=== PATIENT | female | born 1985 | race Two or more races ===

== ENCOUNTER 2016-03-13 19:48 | Emergency (ER) | payer SELFPAY ==
[2016-03-13 21:03] VITALS: BP 105/68
[2016-03-13] MEDS ORDERED: ONDANSETRON 4 MG TAB.RAPDIS PO ONE (21:11)
[2016-03-13] MEDS ORDERED: ACETAMINOPHEN 325 MG TABLET PO ONE (21:11)
--- NOTE | 2016-03-13 21:14 | ER Document Report ---
ED Medical Screen (RME) - General Chief Complaint: Abdominal Pain Stated Complaint: STOMACH PAIN Notes: 30-year-old, G5 before at 15 weeks gestation by last menstrual period, complaining of upper to left mid abdominal pain since this morning, reporting vomiting x1, reports she felt like she had to strain to have a bowel movement. No blood in vomit or bowel movement, patient states she felt feverish earlier today. TRAVEL OUTSIDE OF THE [place] IN LAST 30 DAYS: No - Related Data Allergies/Adverse Reactions: No Known Allergies Allergy (Verified 03/13/16 21:07) Home Medications: Current Home Medications Vit/Iron Fumarate/FA [ Tablet] 1 each PO DAILY 03/13/16 [ History] Past Medical History - Social History Chew tobacco use (# tins/day): No Frequency of alcohol use: None Drug Abuse: None Renal/ Medical History: Denies: Hx Peritoneal Dialysis Past Surgical History: Reports: Hx Section, Hx Hysterectomy - Immunizations Immunizations up to date: No Hx Diphtheria, Pertussis, Tetanus Vaccination: No Physical Exam - Vital signs Vitals: Temp Pulse Resp BP Pulse Ox 98.2 F 84 18 105/68 99 03/13/16 21:02 03/13/16 21:02 03/13/16 21:02 03/13/16 21:02 03/13/16 21:02 - Abdominal Inspection: Gravid female Tenderness: Tender - Very mild generalized tenderness, nonspecific, exam limited due to patient sitting in chair Course - Vital Signs Vital signs: Temp Pulse Resp BP Pulse Ox 98.2 F 84 18 105/68 99 03/13/16 21:02 03/13/16 21:02 03/13/16 21:02 03/13/16 21:02 03/13/16 21:02
[2016-03-13] MEDS ORDERED: ACETAMINOPHEN 325 MG TABLET ONE (21:23)
[2016-03-13 21:58] LABS: ABSOLUTE BASOPHILS # (AUTO) 0.1 10^3/uL (0.0-0.2); ABSOLUTE LYMPHOCYTES (AUTO) 1.4 10^3/uL (0.5-4.7); ABSOLUTE MONOCYTES (AUTO) 0.3 10^3/uL (0.1-1.4); ABSOLUTE NEUT (AUTO) 10.1 10^3/uL (1.7-8.2); BASOPHILS % (AUTO) 0.4 % (0-2); EOSINOPHILS % (AUTO) 0.1 % (0-6); HEMATOCRIT 39.8 % (36.0-47.0); HGB HCT DIFFERENCE -0.8; LYMPHOCYTES % (AUTO) 11.4 % (13-45); MEAN CORPUSCULAR HEMOGLOBIN 30.8 pg (27.0-33.4); MEAN CORPUSCULAR HGB CONC 32.7 g/dL (32.0-36.0); MEAN CORPUSCULAR VOLUME 94 fl (80-97); MONOCYTES % (AUTO) 2.9 % (3-13); RED BLOOD COUNT 4.24 10^6/uL (3.72-5.28); RED CELL DISTRIBUTION WIDTH 12.9 % (11.5-14.0); SEGMENTED NEUTROPHILS % (AUTO) 85.2 % (42-78); WHITE BLOOD COUNT 11.9 10^3/uL (4.0-10.5)
[2016-03-13 22:06] LABS: APPEARANCE,URINE SLIGHTLY-CLOUDY; BILIRUBIN,URINE NEGATIVE (NEGATIVE); GLUCOSE, URINE 50 mg/dL (NEGATIVE); KETONES,URINE 20 mg/dL (NEGATIVE); LEUKOCYTE ESTERASE,URINE NEGATIVE (NEGATIVE); NITRITE,URINE NEGATIVE (NEGATIVE); PROTEIN,URINE >=500 mg/dL (NEGATIVE); URINE SPECIFIC GRAVITY 1.029; UROBILINOGEN,URINE NEGATIVE mg/dL (<2.0)
[2016-03-13 22:08] LABS: ALANINE AMINOTRANSFERASE 31 U/L (9-52); ALBUMIN 3.9 g/dL (3.5-5.0); ALKALINE PHOSPHATASE 77 U/L (38-126); ANION GAP 11 (5-19); ASPARTATE AMINO TRANSFERASE 20 U/L (14-36); BILIRUBIN,TOTAL 0.5 mg/dL (0.2-1.3); BLOOD UREA NITROGEN 10 mg/dL (7-20); CALCIUM 9.2 mg/dL (8.4-10.2); CARBON DIOXIDE 22 mmol/L (22-30); CHLORIDE 105 mmol/L (98-107); CREATININE RESULT 0.57 mg/dL (0.52-1.25); GLUCOSE 151 mg/dL (75-110); POTASSIUM 3.8 mmol/L (3.6-5.0); SODIUM 137.9 mmol/L (137-145); TOTAL PROTEIN 7.4 g/dL (6.3-8.2)
== END 2016-03-14 02:22 | disposition left against medical advice (07) ==
LOC: ER 19:48
DX: Z53.9 Procedure and treatment not carried out, unspecified reason (principal); R10.9 Unspecified abdominal pain; Z79.899 Other long term (current) drug therapy
CPT/HCPCS: 99281; 36415; 85025; 80053; 81001; S0119

== ENCOUNTER 2016-03-18 23:57 | Inpatient (IN) | payer SELFPAY ==
--- NOTE | 2016-03-19 00:35 | ER Document Report ---
ED Medical Screen (RME) - General Chief Complaint: Vaginal Bleeding Stated Complaint: VAGINAL BLEEDING Time seen by provider: 00:29 Mode of Arrival: Ambulatory Information source: Patient Notes: 30-year-old female presents to ED for vaginal bleeding and pelvic pain and . On March 13 she was stated as 15 weeks . She states she had an ultrasound last month and was told she had a boy does not remember what day she was due. Patient states she's been having vaginal bleeding for 24 hours. She states yesterday the bleeding was heavy today this like a regular period. She states she takes 2-3 hours for her to soak one pad today 5 para 4 the youngest one is about a year. I have greeted and performed a rapid initial assessment of this patient. A comprehensive ED assessment and evaluation of the patient, analysis of test results and completion of medical decision making process will be conducted by an additional ED providers. TRAVEL OUTSIDE OF THE [place] IN LAST 30 DAYS: No - Related Data Allergies/Adverse Reactions: No Known Allergies Allergy (Verified 03/13/16 21:07) Past Medical History Renal/ Medical History: Denies: Hx Peritoneal Dialysis Past Surgical History: Reports: Hx Section, Hx Hysterectomy - Immunizations Immunizations up to date: No Hx Diphtheria, Pertussis, Tetanus Vaccination: No Physical Exam - Vital signs Vitals: Temp Pulse Resp BP Pulse Ox 99.1 F 139 H 18 91/57 L 97 03/19/16 00:16 03/19/16 00:16 03/19/16 00:16 03/19/16 00:16 03/19/16 00:16 Course - Vital Signs Vital signs: Temp Pulse Resp BP Pulse Ox 99.1 F 139 H 18 91/57 L 97 03/19/16 00:16 03/19/16 00:16 03/19/16 00:16 03/19/16 00:16 03/19/16 00:16
[2016-03-19] MEDS ORDERED: NORMAL SALINE 1000 ML 1,000 ML IV ONE (00:36)
[2016-03-19] MEDS ORDERED: NORMAL SALINE 250 ML IV PRN (00:43)
[2016-03-19] MEDS ORDERED: ONDANSETRON HCL INJ/PF 4 MG/2 ML SDV IV ONE (00:48)
[2016-03-19] MEDS ORDERED: MORPHINE SULFATE 10 MG/ML INJ IV ONE (00:48)
--- NOTE | 2016-03-19 00:51 | ER Document Report ---
ED General - General Mode of Arrival: Ambulatory Information source: Patient TRAVEL OUTSIDE OF THE [place] IN LAST 30 DAYS: No - HPI Patient complains to provider of: Vaginal Bleeding Onset: Yesterday Onset/Duration: Sudden, Better <ISRAEL SCHUSTER - Last Filed: 03/19/16 05:06> <TESHANANO ANN - Last Filed: 03/19/16 06:25> - General Chief Complaint: Vaginal Bleeding Stated Complaint: VAGINAL BLEEDING Notes: Patient is a 16 week , 30 y/o female presenting to the emergency department concerned of vaginal bleeding onset yesterday. Patient states that she went through 5 pads yesterday, and 3 today. Patient states that it seems like the bleeding is slowing down today. Patient also complains of lower/ suprapubic abdominal pain. (ISRAEL SCHUSTER) - HPI Context: 16 weeks (ISRAEL SCHUSTER) - Related Data Allergies/Adverse Reactions: No Known Allergies Allergy (Verified 03/13/16 21:07) Past Medical History - General Information source: Patient, [facility] Records - Social History Smoking Status: Current Every Day Smoker Frequency of alcohol use: None Drug Abuse: None Family History: None Patient has suicidal ideation: No Renal/ Medical History: Denies: Hx Peritoneal Dialysis Past Surgical History: Reports: Hx Section, Hx Hysterectomy - Immunizations Immunizations up to date: No Hx Diphtheria, Pertussis, Tetanus Vaccination: No <ISRAEL SCHUSTER - Last Filed: 03/19/16 05:06> Review of Systems - Review of Systems Constitutional: No symptoms reported EENT: No symptoms reported Cardiovascular: See HPI, Lightheaded Respiratory: No symptoms reported Gastrointestinal: See HPI, Abdominal pain Genitourinary: No symptoms reported Female Genitourinary: See HPI, , Vaginal bleeding Musculoskeletal: No symptoms reported Skin: No symptoms reported Hematologic/Lymphatic: No symptoms reported Neurological/Psychological: No symptoms reported -: Yes All other systems reviewed and negative <ISRAEL SCHUSTER - Last Filed: 03/19/16 05:06> Physical Exam - Vital signs Interpretation: Hypotensive, Tachycardic - General General appearance: Alert - HEENT Head: Normocephalic, Atraumatic Eyes: Normal Pupils: PERRL - Respiratory Respiratory status: No respiratory distress Chest status: Nontender Breath sounds: Normal Chest palpation: Normal - Cardiovascular Rhythm: Regular Heart sounds: Normal auscultation Murmur: No - Abdominal Inspection: Gravid female Tenderness: Tender - Diffuse suprapubic tenderness to palpation - Genitourinary Speculum exam: Cervix open Vaginal bleeding: None - Back Back: Normal, Nontender - Extremities General upper extremity: Normal inspection, Nontender, Normal color, Normal ROM , Normal temperature General lower extremity: Normal inspection, Nontender, Normal color, Normal ROM , Normal temperature - Neurological Neuro grossly intact: Yes Cognition: Normal Calmar Coma Scale Eye Opening: Spontaneous Calmar Coma Scale Verbal: Oriented Kindra Coma Scale Motor: Obeys Commands Calmar Coma Scale Total: 15 Speech: Normal - Psychological Associated symptoms: Normal affect, Normal mood - Skin Skin Temperature: Warm Skin Moisture: Dry Skin Color: Normal <ISRAEL SCHUSTER - Last Filed: 03/19/16 05:06> Course - Laboratory Result Diagrams: 03/19/16 01:00 03/19/16 01:00 - Consults Yoana Time consulted: 01:33 Dilcia Time consulted: 03:02 <ISRAEL SCHUSTER - Last Filed: 03/19/16 05:06> - Laboratory Result Diagrams: 03/19/16 05:01 03/19/16 01:00 - Diagnostic Test Radiology reviewed: Image reviewed, Reports reviewed <NANO PARKINSON - Last Filed: 03/19/16 06:25> - Re-evaluation Re-evalutation: 03/19/16 Patient is a 30-year-old female who comes in complaining of abdominal pain and vaginal bleeding. Patient has no vaginal bleeding currently. Her hemoglobin has gone from 13-9 since March 13. Patient presents with tachycardia and hypotension. Patient was given fluid bolus and OB was immediately consult at. Instructed to give IV doxycycline and get ultrasound. Ultrasound showing a complex structure in the right adnexa. Discussed with STAFF DEVELOPER. Does not think that it is a ruptured ectopic. Discussed with blood bank. Patient has antibodies and they're still working to type and screen her. It is going to be few hours for blood. Patient's tachycardia has resolved which she has been consistently hypotensive. Patient states that she is usually hypotensive. Patient will be continued with fluid boluses at this time. She is also been given Ancef as per STAFF DEVELOPER. Patient will be admitted to the ICU. She will likely will be going to the OR at some point today. (NANO PARKINSON) - Vital Signs Vital signs: Temp Pulse Resp BP Pulse Ox 99.1 F 139 H 24 H 80/60 L 97 03/19/16 00:16 03/19/16 00:16 03/19/16 04:30 03/19/16 04:30 03/19/16 04:30 (ISRAEL SCHUSTER) (NANO PARKINSON) - Laboratory Laboratory results interpreted by me: 03/19/16 03/19/16 03/19/16 01:00 01:00 01:00 WBC 27.6 H RBC 3.17 L Hgb 9.7 L Hct 29.4 L Seg Neuts % (Manual) 89 H Lymphocytes % (Manual) 2 L Abs Neuts (Manual) 25.7 H Potassium 3.0 L* Carbon Dioxide 19 L Alkaline Phosphatase 146 H Beta HCG, Quant 63494.00 H Crossmatch See Detail (NANO PARKINSON) - Consults Yoana Reason for consultation: 03/19/16 01:[address] Lees about patient's case, and she states to get an ultrasound and give the patient Doxycycline. 03/19/16 02:58 Discussed unofficial ultrasound reading with Dr. Lees. She will look at the ultrasound and call back. 03/19/16310 Dr. Lees called back to discuss ultrasound. She will call radiologist to discuss formal reading. 03/19/167 Dr. Lees spoke with radiologist who believes that the patient has a corpus luteum cyst. Dr. Lees will come to ED to see patient. 03/19/[address] Lees came to see patient and recommends to admit to 2nd floor for observation. Dr. Lees does not feel comfortable taking patient to the OR until there is access to blood for the patient. 03/19/[address] Lees after receiving call from second floor refusing patient due to her hypotensive state. (ISRAEL SCHUSTER) Dilcia Reason for consultation: 03/19/16 03:[address] Ha to make aware of patient's case. Dr. Ha agrees that it seems more like an OB case and will take a back seat unless further assistance is needed from him. (ISRAEL SCHUSTER) Critical Care Note - Critical Care Note Total time excluding time spent on procedures (mins): 120 - evaluation and management of hypotension, leukocytosis, anemia, abdominal pain, coordination with specialist he services, coordination of admission to the ICU, counseling of patient <NANO PARKINSON - Last Filed: 03/19/16 06:25> Discharge <ISRAEL SCHUSTER - Last Filed: 03/19/16 05:06> - Discharge Admitting Provider: [facility] Admitted: ICU - [place] <NANO PARKINSON - Last Filed: 03/19/16 06:25> - Discharge Clinical Impression: SIRS (systemic inflammatory response syndrome), Symptomatic anemia Fever Qualifiers: Fever type: unspecified Qualified Code(s): R50.9 - Fever, unspecified Qualifiers: Weeks of gestation: unspecified Qualified Code(s): Z33.1 - state, incidental Condition: Fair Disposition: ADMITTED INPATIENT Scribe Attestation: 03/19/16 06:25 I personally performed the services described in the documentation, reviewed and edited the documentation which was dictated to the scribe in my presence, and it accurately records my words and actions. (NANO PARKINSON) Scribe Documentation - Scribe Written by Maranda:: Israel Schuster 03/19/2016 0050 acting as scribe for :: Tesha <ISRAEL SCHUSTER - Last Filed: 03/19/16 05:06>
[2016-03-19 01:28] LABS: HEMATOCRIT 29.4 % (36.0-47.0); HEMOGLOBIN 9.7 g/dL (12.0-15.5); HGB HCT DIFFERENCE -0.3; MEAN CORPUSCULAR HEMOGLOBIN 30.7 pg (27.0-33.4); MEAN CORPUSCULAR HGB CONC 33.1 g/dL (32.0-36.0); MEAN CORPUSCULAR VOLUME 93 fl (80-97); RED BLOOD COUNT 3.17 10^6/uL (3.72-5.28); RED CELL DISTRIBUTION WIDTH 12.6 % (11.5-14.0); WHITE BLOOD COUNT 27.6 10^3/uL (4.0-10.5)
[2016-03-19] MEDS ORDERED: DOXYCYCLINE HYCLATE INJ 100 MG VIAL IV ONE (01:32)
[2016-03-19] MEDS ORDERED: ACETAMINOPHEN 325 MG TABLET PO ONE (01:36)
[2016-03-19 01:40] LABS: ALANINE AMINOTRANSFERASE 16 U/L (9-52); ALBUMIN 3.6 g/dL (3.5-5.0); ALKALINE PHOSPHATASE 146 U/L (38-126); ANION GAP 13 (5-19); ASPARTATE AMINO TRANSFERASE 24 U/L (14-36); BILIRUBIN,TOTAL 0.9 mg/dL (0.2-1.3); BLOOD UREA NITROGEN 15 mg/dL (7-20); CALCIUM 8.8 mg/dL (8.4-10.2); CARBON DIOXIDE 19 mmol/L (22-30); CHLORIDE 105 mmol/L (98-107); CREATININE RESULT 0.87 mg/dL (0.52-1.25); GLUCOSE 109 mg/dL (75-110); SODIUM 137.2 mmol/L (137-145); TOTAL PROTEIN 7.3 g/dL (6.3-8.2)
[2016-03-19 02:00] LABS: BAND NEUTROPHILS % (MANUAL) 4 % (3-5); BASOPHILS % (MANUAL) 0 % (0-2); EOSINOPHILS % (MANUAL) 0 % (0-6); LYMPHOCYTES % (MANUAL) 2 % (13-45); TOTAL CELLS COUNTED 100
[2016-03-19 02:02] LABS: OVALOCYTES SLIGHT; POIKILOCYTOSIS SLIGHT; TOXIC GRANULATION SLIGHT
[2016-03-19] MEDS ORDERED: RINGERS SOLUTION,LACTATED 1,000 ML IV ONE ×3 (02:27→05:05)
[2016-03-19] MEDS ORDERED: POTASSI CL 20 MEQ/50 ML RIDER 50 ML IV SCH (03:00)
[2016-03-19] MEDS ORDERED: ONDANSETRON HCL INJ/PF 4 MG/2 ML SDV IV PRN (05:26)
[2016-03-19] MEDS ORDERED: CEFAZOLIN 2 GM/D5W RTU 50 ML IV ONE (05:34)
[2016-03-19 05:53] LABS: HEMATOCRIT 24.2 % (36.0-47.0); HEMOGLOBIN 8.2 g/dL (12.0-15.5); HGB HCT DIFFERENCE 0.4; MEAN CORPUSCULAR HEMOGLOBIN 31.1 pg (27.0-33.4); MEAN CORPUSCULAR HGB CONC 33.8 g/dL (32.0-36.0); MEAN CORPUSCULAR VOLUME 92 fl (80-97); RED BLOOD COUNT 2.63 10^6/uL (3.72-5.28); RED CELL DISTRIBUTION WIDTH 12.8 % (11.5-14.0); WHITE BLOOD COUNT 23.9 10^3/uL (4.0-10.5)
[2016-03-19 06:00] LABS: BAND NEUTROPHILS % (MANUAL) 7 % (3-5); BASOPHILS % (MANUAL) 0 % (0-2); EOSINOPHILS % (MANUAL) 0 % (0-6); LYMPHOCYTES % (MANUAL) 8 % (13-45); OVALOCYTES SLIGHT; POIKILOCYTOSIS SLIGHT; POLYCHROMASIA SLIGHT; TOTAL CELLS COUNTED 100; TOXIC GRANULATION SLIGHT
[2016-03-19 06:34] LABS: APPEARANCE,URINE CLEAR; BILIRUBIN,URINE NEGATIVE (NEGATIVE); GLUCOSE, URINE NEGATIVE (NEGATIVE); KETONES,URINE NEGATIVE (NEGATIVE); LEUKOCYTE ESTERASE,URINE TRACE (NEGATIVE); NITRITE,URINE NEGATIVE (NEGATIVE); PROTEIN,URINE NEGATIVE (NEGATIVE); URINE SPECIFIC GRAVITY 1.008
[2016-03-19] MEDS ORDERED: GENTAMICIN SULFATE INJ 80 MG/2 ML VIAL IM ONE (06:42)
--- NOTE | 2016-03-19 06:42 | PDOC H&P ---
History of Present Illness Admission Date/PCP: 03/19/16 03:55 Patient complains of: vaginal bleeding like the last day of menses History of Present Illness: KARELY HOWARD is a 30 year old female with h/o prior x 3 and then Urgent C/S in 2015 for NRFHTS. She thought she had a BTL at her C/S in 2014. However, review of operative report noted NO tubal ligation. She presents for evaluation in the ER due to vaginal bleeding and known . She reports that she was seen at a clinic and then referred for an US at the end of January or beginning of Feb and was told she was 14-15wks at that time. 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 She denies SOB but reports that she felt dizzy and lightheaded when she came in to the ER. She is not sure of last menses but it may have been at then end of November. Past Medical History LMP: unknown Gynecological Infection: No 1 Baby 1 Delivery: Spontaneous Vaginal Delivery 2 Baby 2 Delivery: Spontaneous Vaginal Delivery 3 Baby 3 Delivery: Spontaneous Vaginal Delivery 4 Male Delivery: : Low Cervical, Transverse Past Surgical History Past Surgical History: Reports: Section - Pt did not have BTL during section. Social History Information Source: Patient, [facility] Records Lives with: Family Smoking Status: Current Every Day Smoker Frequency of Alcohol Use: None Hx Recreational Drug Use: No Drugs: None Hx Prescription Drug Abuse: No - Advance Directive Resuscitation Status: Full Code Family History Family History: None, Reviewed & Not Pertinent Parental Family History Reviewed: No Children Family History Reviewed: NA Sibling(s) Family History Reviewed.: NA Medication/Allergy Home Medications: Vit/Iron Fumarate/FA [ Tablet] 1 each PO DAILY 03/13/16 Allergies/Adverse Reactions: No Known Allergies Allergy (Verified 03/13/16 21:07) Review of Systems Constitutional: ABSENT: chills, fever(s), headache(s), weight gain, weight loss Eyes: ABSENT: visual disturbances Respiratory: ABSENT: cough, hemoptysis Gastrointestinal: ABSENT: abdominal pain, constipation, diarrhea, hematemesis, hematochezia, nausea, vomiting Genitourinary: PRESENT: other - vaginal bleeding.. ABSENT: dysuria Musculoskeletal: ABSENT: joint swelling Integumentary: ABSENT: rash, wounds Neurological: ABSENT: abnormal gait, abnormal speech, confusion, dizziness, focal weakness, syncope Psychiatric: ABSENT: anxiety, depression, homidical ideation, suicidal ideation Physical Exam - Physical Exam Vital Signs: Temp Pulse Resp BP Pulse Ox 99.1 F 139 H 24 H 80/60 L 97 03/19/16 00:16 03/19/16 00:16 03/19/16 04:30 03/19/16 04:30 03/19/16 04:30 General appearance: PRESENT: no acute distress, cooperative, well-developed, well-nourished Head exam: PRESENT: atraumatic, normocephalic Respiratory exam: PRESENT: clear to auscultation qi, symmetrical Cardiovascular exam: PRESENT: RRR. ABSENT: diastolic murmur, rubs, systolic murmur GI/Abdominal exam: PRESENT: normal bowel sounds, rebound, soft, tenderness - left side of abdomen diffuse. ABSENT: distended, firm, guarding Rectal exam: PRESENT: deferred Extremities exam: PRESENT: full ROM. ABSENT: calf tenderness, clubbing, pedal edema Musculoskeletal exam: PRESENT: ambulatory, full ROM Neurological exam: PRESENT: alert, awake, oriented to person, oriented to place , oriented to time, oriented to situation, CN II-XII grossly intact. ABSENT: motor sensory deficit Psychiatric exam: PRESENT: appropriate affect, normal mood. ABSENT: homicidal ideation, suicidal ideation Skin exam: PRESENT: dry, intact, warm. ABSENT: cyanosis, rash - Gynecological Exam Labia: normal Urethra: normal Introitus: normal Perineum: normal Cervix: other - approx 1cm dilated Uterus: tender, other - displaced to left maternal abdomen Adhexa: other - large right adnexal mass not palpable Rectal: not examined Rectovaginal: not examined Result Laboratory Results: 03/19/16 04:03 Lactic Acid 1.0 Impressions: Obstetrics Ultrasound 03/19/16 01:13 IMPRESSION: NO VISUALIZED INTRA- OR EXTRAUTERINE . COMPLEX MATERIAL DISTENDING THE ENDOMETRIAL CAVITY COULD REPRESENT FAILED INTRAUTERINE OR POTENTIALLY MOLAR . RECOMMEND CORRELATION WITH BETA HCG LEVEL. ADDITIONAL NOTE MADE OF A 19.8 CM RIGHT ADNEXAL CYST WHICH MAY BE AN OVARIAN OR PAROVARIAN CYST. THERE IS NO EVIDENCE OF RIGHT OVARIAN TORSION HOWEVER RECOMMEND GYNECOLOGIC CONSULTATION GIVEN THE SIZE OF THIS LESION. Assessment & Plan - Diagnosis (1) Ovarian mass, right Is this a current diagnosis for this admission?: YesPlan: large Right adnexal mass loculated and fluid filled per US read and my evaluation of pictures as well. Possible Theca Lutein cyst in the setting of possible molar or partial molar . If theca lutein cyst then this would resolve with evacuation of the uterus. (2) Missed Is this a current diagnosis for this admission?: YesPlan: MAB with bleeding for approx 2 days and noted Hb/Hct drop. Now 8.3/24 decreased from several days ago and also decreased from admission at approx 0100. Will get Urine cx and GC/CT for evaluation. Transfuse 2 units of PRBC prior to OR. Due to uterine ttp and elevated WBC count - Gent/Clinda started for possible septic . Pt informed that she did not have BTL with prior c/s. Only temp documented in ER is 99.1 which is not technically a fever. Temp has not been re-evaluated at this time. She is added on for D&C for 03/19/2016 (3) Anemia Qualifiers: Anemia type: iron deficiency Iron deficiency anemia type: other iron deficiency Qualified Code(s): D50.8 - Other iron deficiency anemias Is this a current diagnosis for this admission?: YesPlan: Anemia of blood loss with bleeding for 2 days but now no active bleeding on exam. However, due to continued decrease of Hb/Hct (likely most recent is due to hemodilution) and due to persistent hypotension despite fluid recussitation. Needs Transfusion and continuing to wait for PRBCs due to reported antibodies. Needs to have transfusion on board prior to surgical evaluation. - Time Time Spent: 30 to 50 Minutes Critical Time spent with patient: Less than 15 minutes Medications reviewed and adjusted accordingly: Yes Anticipated discharge: Home Within: within 48 hours - Inpatient Certification Medical Necessity: Need Close Monitoring Due to Risk of Patient Decompensation, Need For IV Fluids, Need for IV Antibiotics, Need for Surgery Post Hospital Care: D/C Cheese Sprayer Documentation
[2016-03-19 08:23] LABS: CHLAM PCR NOT DETECTED (NOT DETECT)
[2016-03-19] MEDS: CLINDAMYCIN 900 MG/D5W RTU 50 ML IV SCH ×3 (08:45→21:50)
[2016-03-19] MEDS ORDERED: DIPHENHYDRAMINE HCL 50 MG/ML VIAL IV ONE (09:30)
[2016-03-19] MEDS ORDERED: GENTAMICIN SULFATE 150 MG in DEXTROSE 5%-WATER 100 ML IV ONE (10:00)
[2016-03-19] MEDS ORDERED: ACETAMINOPHEN 100 ML IV ONE (10:00)
[2016-03-19] MEDS ORDERED: GENTAMICIN SULFATE 120 MG in DEXTROSE 5%-WATER 100 ML IV ONE (10:00)
[2016-03-19] MEDS ORDERED: MIDAZOLAM 2 MG/2 ML INJ ONE (12:41)
[2016-03-19] MEDS ORDERED: FENTANYL CITRATE INJ/PF 250 MCG/5 ML AMPULE ONE (12:41)
[2016-03-19] MEDS ORDERED: PROPOFOL INJ 200 MG/20 ML VIAL IV ONE (12:41)
[2016-03-19] MEDS ORDERED: MORPHINE SULFATE 10 MG/ML INJ ONE (12:42)
[2016-03-19] MEDS ORDERED: METHYLERGONOVINE MALEATE INJ/PF 0.2 MG/1 ML AMPULE ONE (12:46)
[2016-03-19] MEDS ORDERED: MISOPROSTOL 0.2 MG TABLET ONE (12:46)
[2016-03-19] MEDS ORDERED: LIDOCAINE 1% INJ-PF (10 MG/ML) 30 ML SDV ONE (12:46)
[2016-03-19] MEDS ORDERED: GENTAMICIN SULFATE INJ 80 MG/2 ML VIAL IV SCH (14:00)
--- NOTE | 2016-03-19 14:17 | OPERATIVE REPORT E ---
Operative Report NAME: KARELY HOWARD : 1985 AGE: 30Y DATE OF SURGERY: 03/19/2016 ROOM: ED10 PREOPERATIVE DIAGNOSIS: Incomplete septic . POSTOPERATIVE DIAGNOSIS: Incomplete septic . OPERATION: Ultrasound guided suction D and C. SURGEON: MELLISSA CUELLAR M.D. ANESTHESIA: General endotracheal. ESTIMATED BLOOD LOSS: Two-hundred mL. SPECIMEN TO PATHOLOGY: Products of conception. FINDINGS: There was an enlarged uterus with copious products of conception and a gaping cervical os. At the beginning of the procedure, there was slightly murky blood in the vagina. The uterus appeared clean at the end of the procedure by ultrasound and bleeding was scant at the end of the procedure. The patient does have incidentally noted a 20 cm right ovarian cystic cyst. For this reason, the ultrasound guidance was used, as well as the infected uterine tissue with large amount of products of conception present. DESCRIPTION OF PROCEDURE: After discussing risks, benefits, and alternatives of the procedure and obtaining informed consent, the patient was taken to the operating room where general anesthesia was achieved. She was given 1 unit intraoperatively and had been given 1 unit preoperatively for her anemia. She was positioned in the dorsal lithotomy position, and prepped and draped in the usual standard fashion. The inverter and clipper positioned herself for ultrasound guidance from the abdomen during this time. Bladder was then drained via in and out catheterization. A speculum was placed in the vagina. The anterior aspect of the cervix was grasped with a single tooth tenaculum. A #14 dilator immediately passed. A curved suction curette was introduced into the uterine cavity under ultrasound guidance and suction curettage was performed. This was performed until the cavity seemed clean. A large Banjo curette was used to remove a small amount of remaining placenta and membranes. The curette was passed one final time and the uterus involuted. Cytotec 1000 mcg was placed prophylactically at the end of the procedure to keep the uterus contracted, given the suspected infection and baseline anemia. DICTATING PHYSICIAN: MELLISSA CUELLAR M.D. [id number] PHY#: [id number] ID: [id number] JOB#: [id number] ACCT: [id number] cc:MELLISSA CUELLAR M.D. >
[2016-03-19] MEDS ORDERED: PHENYLEPHRINE HCL INJ/PF 10 MG/1 ML SDV ONE (15:15)
[2016-03-19] MEDS ORDERED: LIDOCAINE 2% INJ-PF (20 MG/ML) 10 ML AMPUL ONE (15:15)
[2016-03-19] MEDS ORDERED: METOCLOPRAMIDE HCL INJ/PF 10 MG/2 ML SDV ONE (15:15)
[2016-03-19] MEDS ORDERED: ONDANSETRON HCL INJ/PF 4 MG/2 ML SDV ONE (15:15)
[2016-03-19] MEDS ORDERED: SUCCINYLCHOLINE CHLORIDE INJ 200 MG/10 ML VIAL ONE (15:15)
[2016-03-19] MEDS ORDERED: GLYCOPYRROLATE INJ 0.4 MG/2 ML VIAL ONE (15:15)
[2016-03-19 15:34] LABS: WHITE BLOOD COUNT 20.2 10^3/uL (4.0-10.5)
[2016-03-19 15:50] LABS: ANION GAP 9 (5-19); BLOOD UREA NITROGEN 11 mg/dL (7-20); CALCIUM 7.7 mg/dL (8.4-10.2); CARBON DIOXIDE 18 mmol/L (22-30); CHLORIDE 112 mmol/L (98-107); CREATININE RESULT 0.73 mg/dL (0.52-1.25); GLUCOSE 100 mg/dL (75-110); SODIUM 138.6 mmol/L (137-145)
[2016-03-19 15:59] LABS: POTASSIUM 4.2 mmol/L (3.6-5.0)
[2016-03-19 16:01] LABS: HEMATOCRIT 31.3 % (36.0-47.0); HEMOGLOBIN 10.6 g/dL (12.0-15.5); HGB HCT DIFFERENCE 0.5; MEAN CORPUSCULAR HEMOGLOBIN 31.7 pg (27.0-33.4); MEAN CORPUSCULAR HGB CONC 33.8 g/dL (32.0-36.0); MEAN CORPUSCULAR VOLUME 94 fl (80-97); RED BLOOD COUNT 3.34 10^6/uL (3.72-5.28); RED CELL DISTRIBUTION WIDTH 13.8 % (11.5-14.0)
[2016-03-19] MEDS ORDERED: RINGERS SOLUTION,LACTATED 1,000 ML IV PRN (17:00)
[2016-03-19] MEDS: IBUPROFEN 800 MG TABLET PO PRN (19:00)
[2016-03-19] MEDS: GENTAMICIN SULFATE 80 MG in DEXTROSE 5%-WATER 100 ML IV SCH (19:35)
[2016-03-20] MEDS: IBUPROFEN 800 MG TABLET PO PRN ×3 (02:16→21:54)
[2016-03-20] MEDS: GENTAMICIN SULFATE 80 MG in DEXTROSE 5%-WATER 100 ML IV SCH ×2 (02:17→09:58)
[2016-03-20] MEDS: CLINDAMYCIN 900 MG/D5W RTU 50 ML IV SCH ×3 (05:05→21:02)
[2016-03-20 06:54] LABS: ABSOLUTE EOSINOPHILS # (AUTO) 0.3 10^3/uL (0.0-0.6); ABSOLUTE LYMPHOCYTES (AUTO) 2.1 10^3/uL (0.5-4.7); ABSOLUTE MONOCYTES (AUTO) 0.8 10^3/uL (0.1-1.4); ABSOLUTE NEUT (AUTO) 13.2 10^3/uL (1.7-8.2); BASOPHILS % (AUTO) 0.2 % (0-2); EOSINOPHILS % (AUTO) 1.6 % (0-6); HEMATOCRIT 26.7 % (36.0-47.0); HEMOGLOBIN 8.9 g/dL (12.0-15.5); LYMPHOCYTES % (AUTO) 12.7 % (13-45); MEAN CORPUSCULAR HEMOGLOBIN 31.1 pg (27.0-33.4); MEAN CORPUSCULAR HGB CONC 33.3 g/dL (32.0-36.0); MEAN CORPUSCULAR VOLUME 93 fl (80-97); MONOCYTES % (AUTO) 4.9 % (3-13); RED BLOOD COUNT 2.86 10^6/uL (3.72-5.28); RED CELL DISTRIBUTION WIDTH 13.7 % (11.5-14.0); SEGMENTED NEUTROPHILS % (AUTO) 80.6 % (42-78); WHITE BLOOD COUNT 16.4 10^3/uL (4.0-10.5)
[2016-03-20 07:08] LABS: ANION GAP 7 (5-19); BLOOD UREA NITROGEN 10 mg/dL (7-20); CALCIUM 7.8 mg/dL (8.4-10.2); CARBON DIOXIDE 20 mmol/L (22-30); CHLORIDE 113 mmol/L (98-107); CREATININE RESULT 0.78 mg/dL (0.52-1.25); GLUCOSE 94 mg/dL (75-110); POTASSIUM 3.4 mmol/L (3.6-5.0); SODIUM 139.7 mmol/L (137-145)
--- NOTE | 2016-03-20 10:28 | PDOC PROGRESS REPORT ---
Subjective Subjective:: Pt reports feeling better No n/v, light vaginal bleeding Physical Exam - Physical Exam Vital Signs: Temp Pulse Resp BP Pulse Ox 98.1 F 73 20 92/52 L 99 03/20/16 08:27 03/20/16 08:27 03/20/16 08:27 03/20/16 08:27 03/20/16 08:27 Intake & Output 03/19/16 03/20/16 03/21/16 06:59 06:59 06:59 Intake Total 2750 350 Output Total 750 Balance 2000 350 Weight 71.4 kg 72 kg General appearance: PRESENT: no acute distress, cooperative, obese GI/Abdominal exam: PRESENT: normal bowel sounds, soft, tenderness - mild uterine tenderness - Gynecological Exam Labia: normal Urethra: normal Introitus: normal Perineum: normal Cervix: other - open approx 1cm Cervix: other - approx 1cm dilated Uterus: tender, other - displaced to left maternal abdomen Adhexa: other - large right adnexal mass not palpable Rectal: not examined Rectovaginal: not examined Result Laboratory Results: 03/20/16 06:34 03/20/16 06:34 03/19/16 03/19/16 03/20/16 15:15 15:15 06:34 WBC 20.2 H 16.4 H RBC 3.34 L 2.86 L Hgb 10.6 L D 8.9 L Hct 31.3 L 26.7 L MCV 94 93 MCH 31.7 31.1 MCHC 33.8 33.3 RDW 13.8 13.7 Plt Count 262 274 Seg Neutrophils % 80.6 H Lymphocytes % 12.7 L Monocytes % 4.9 Eosinophils % 1.6 Basophils % 0.2 Absolute Neutrophils 13.2 H Absolute Lymphocytes 2.1 Absolute Monocytes 0.8 Absolute Eosinophils 0.3 Absolute Basophils 0.0 Sodium 138.6 Potassium 4.2 D Chloride 112 H Carbon Dioxide 18 L Anion Gap 9 BUN 11 Creatinine 0.73 Est GFR ( Amer) > 60 Est GFR (Non-Af Amer) > 60 Glucose 100 Calcium 7.7 L 03/20/16 06:34 WBC RBC Hgb Hct MCV MCH MCHC RDW Plt Count Seg Neutrophils % Lymphocytes % Monocytes % Eosinophils % Basophils % Absolute Neutrophils Absolute Lymphocytes Absolute Monocytes Absolute Eosinophils Absolute Basophils Sodium 139.7 Potassium 3.4 L Chloride 113 H Carbon Dioxide 20 L Anion Gap 7 BUN 10 Creatinine 0.78 Est GFR ( Amer) > 60 Est GFR (Non-Af Amer) > 60 Glucose 94 Calcium 7.8 L Impressions: Chest X-Ray 03/19/16 00:00 IMPRESSION: NO ACUTE RADIOGRAPHIC FINDING IN THE CHEST. Intraoperative Ultrasound 03/19/16 00:00 IMPRESSION: Intra procedural transabdominal pelvic ultrasound Obstetrics Ultrasound 03/19/16 01:13 IMPRESSION: NO VISUALIZED INTRA- OR EXTRAUTERINE . COMPLEX MATERIAL DISTENDING THE ENDOMETRIAL CAVITY COULD REPRESENT FAILED INTRAUTERINE OR POTENTIALLY MOLAR . RECOMMEND CORRELATION WITH BETA HCG LEVEL. ADDITIONAL NOTE MADE OF A 19.8 CM RIGHT ADNEXAL CYST WHICH MAY BE AN OVARIAN OR PAROVARIAN CYST. THERE IS NO EVIDENCE OF RIGHT OVARIAN TORSION HOWEVER RECOMMEND GYNECOLOGIC CONSULTATION GIVEN THE SIZE OF THIS LESION. Assessment & Plan - Diagnosis (1) with septicemia Is this a current diagnosis for this admission?: Yes (2) Missed Is this a current diagnosis for this admission?: Yes - Plan Summary Plan Summary: will continue IV abx for another 24 hours, plan d/c home tomorrow
[2016-03-20 10:43] LABS: GENTAMICIN-TROUGH 1.6 ug/mL (<2.0)
[2016-03-20 12:40] LABS: GENTAMICIN-PEAK 4.2 ug/mL (5.0-10.0)
[2016-03-20] MEDS: GENTAMICIN SULFATE 120 MG in DEXTROSE 5%-WATER 100 ML IV SCH (18:43)
[2016-03-20] MEDS ORDERED: OXYCODONE-ACETAMINOPHEN 5-325 MG TABLET ONE (18:57)
[2016-03-20] MEDS ORDERED: OXYCODONE-ACETAMINOPHEN 5-325 MG TABLET PO PRN ×2 (19:02→19:03)
[2016-03-21] MEDS: GENTAMICIN SULFATE 120 MG in DEXTROSE 5%-WATER 100 ML IV SCH (05:09)
[2016-03-21] MEDS: CLINDAMYCIN 900 MG/D5W RTU 50 ML IV SCH (06:22)
[2016-03-21 07:45] LABS: ABSOLUTE BASOPHILS # (AUTO) 0.1 10^3/uL (0.0-0.2); ABSOLUTE EOSINOPHILS # (AUTO) 0.3 10^3/uL (0.0-0.6); ABSOLUTE LYMPHOCYTES (AUTO) 2.3 10^3/uL (0.5-4.7); ABSOLUTE MONOCYTES (AUTO) 0.7 10^3/uL (0.1-1.4); ABSOLUTE NEUT (AUTO) 7.8 10^3/uL (1.7-8.2); BASOPHILS % (AUTO) 0.6 % (0-2); EOSINOPHILS % (AUTO) 2.7 % (0-6); HEMATOCRIT 27.2 % (36.0-47.0); HEMOGLOBIN 9.1 g/dL (12.0-15.5); HGB HCT DIFFERENCE 0.1; LYMPHOCYTES % (AUTO) 20.5 % (13-45); MEAN CORPUSCULAR HEMOGLOBIN 31.4 pg (27.0-33.4); MEAN CORPUSCULAR HGB CONC 33.4 g/dL (32.0-36.0); MEAN CORPUSCULAR VOLUME 94 fl (80-97); MONOCYTES % (AUTO) 5.9 % (3-13); RED CELL DISTRIBUTION WIDTH 13.6 % (11.5-14.0); SEGMENTED NEUTROPHILS % (AUTO) 70.3 % (42-78)
--- NOTE | 2016-03-21 09:15 | PDOC DISCHARGE SUMMARY ---
General - Admit/Disc Date/PCP Admission Date/Primary Care Provider: 03/19/16 05:26 Discharge Date: 03/21/16 - Discharge Diagnosis (1) with septicemia Is this a current diagnosis for this admission?: Yes (2) Ovarian mass, right Is this a current diagnosis for this admission?: YesSummary: Patient noted to have incidental large ovarian cyst. She will follow up in office for repeat ultrasound to check status as hormones resolve. (3) SIRS (systemic inflammatory response syndrome) Is this a current diagnosis for this admission?: Yes (4) Anemia Is this a current diagnosis for this admission?: YesSummary: Acute blood loss anemia s/p transfusion. D/c on iron sulfate - Additional Information Resuscitation Status: Full Code Home Medications: Naproxen [Naprosyn 250 mg Tablet] 250 mg PO DAILYP PRN 03/19/16 Vit #76/Iron,Carb/FA [Prenatabs Rx Tablet] 1 each PO DAILY 03/19/16 History of Present Illness Patient complains of: abdominal pain, bleeding, fever History of Present Illness: KARELY HOWARD is a 30 year old female Pt presents with incomplete and signs of septicemia. Her blood count dropped significantly and she was transfused 2 units PRBCs. She then underwent Suction D&C for removal of products of conception. She received iv antibiotics and ivf hydration Hospital Course Hospital Course: The patient was admitted with incomplete and septicemia. She received 2 units PRBC transfusion and IV antibiotics. She then underwent a Suction D&C to remove products of conception. She was continued on intravenous antibiotics until afebrile for greater than 24 hours. She will be discharged on po antibiotics. Physical Exam - Physical Exam Vital Signs: Temp Pulse Resp BP Pulse Ox 97.9 F 76 18 98/60 L 99 03/21/16 07:59 03/21/16 07:59 03/21/16 07:59 03/21/16 07:59 03/21/16 07:59 Intake & Output 03/20/16 03/21/16 03/22/16 06:59 06:59 06:59 Intake Total 2750 1350 Output Total 750 2 Balance 1999 1348 Weight 72 kg 71.6 kg General appearance: PRESENT: no acute distress, cooperative Respiratory exam: PRESENT: clear to auscultation qi Cardiovascular exam: PRESENT: RRR GI/Abdominal exam: PRESENT: normal bowel sounds, soft. ABSENT: distended, guarding, mass, organolmegaly, rebound, tenderness Extremities exam: PRESENT: full ROM. ABSENT: calf tenderness, clubbing, pedal edema - Gynecological Exam Labia: normal Urethra: normal Introitus: normal Perineum: normal Cervix: other - open approx 1cm Cervix: other - approx 1cm dilated Uterus: tender, other - displaced to left maternal abdomen Adhexa: other - large right adnexal mass not palpable Rectal: not examined Rectovaginal: not examined - Obstetrical Exam Tender: No Result Laboratory Results: 03/21/16 07:20 03/20/16 06:34 03/21/16 07:20 WBC 11.0 H RBC 2.90 L Hgb 9.1 L Hct 27.2 L MCV 94 MCH 31.4 MCHC 33.4 RDW 13.6 Plt Count 292 Seg Neutrophils % 70.3 Lymphocytes % 20.5 Monocytes % 5.9 Eosinophils % 2.7 Basophils % 0.6 Absolute Neutrophils 7.8 Absolute Lymphocytes 2.3 Absolute Monocytes 0.7 Absolute Eosinophils 0.3 Absolute Basophils 0.1 Impressions: Chest X-Ray 03/19/16 00:00 IMPRESSION: NO ACUTE RADIOGRAPHIC FINDING IN THE CHEST. Intraoperative Ultrasound 03/19/16 00:00 IMPRESSION: Intra procedural transabdominal pelvic ultrasound Obstetrics Ultrasound 03/19/16 01:13 IMPRESSION: NO VISUALIZED INTRA- OR EXTRAUTERINE . COMPLEX MATERIAL DISTENDING THE ENDOMETRIAL CAVITY COULD REPRESENT FAILED INTRAUTERINE OR POTENTIALLY MOLAR . RECOMMEND CORRELATION WITH BETA HCG LEVEL. ADDITIONAL NOTE MADE OF A 19.8 CM RIGHT ADNEXAL CYST WHICH MAY BE AN OVARIAN OR PAROVARIAN CYST. THERE IS NO EVIDENCE OF RIGHT OVARIAN TORSION HOWEVER RECOMMEND GYNECOLOGIC CONSULTATION GIVEN THE SIZE OF THIS LESION.
[2016-03-21 10:05] VITALS: BP 92/52
--- NOTE | 2016-03-21 16:30 | Physician Advisory Note ---
Physician Advisor ProgressNote .: Pursuant to the plan for [facility], I have reviewed the medical record for this patient. Physician Advisor Statement: Possible documentation opportunities if attending agrees: 1. "Sepsis due to septic missed , present on admission" [Sepsis dx needs to specify cause explicitly - coders are not allowed to assume anything!] - If pt meets SIRS criteria, as this pt did, & cause is infectious, attending must state whether sepsis was present clinically or not. 2. "Anemia of Acute Blood Loss due to missed Ab" [need to explicitly state the cause of acute blood loss] As always, if concerned about any unstable VS or abnormal labs, please comment on them & note what doing about them, & please document each day the potential clinical problems you are concerned could occur if pt not kept in hospital for tx at this time. Discussion: 30yo female [id number] w/ tobacco use, previous - presented 2/7 AM to ED w/suspected 16wk with recent heavy bleeding , suprapubic abd pain, feeling lightheaded/dizzy (+) T99.1, HR 139-142, RR24, BP 80/60, WBC 27.6, bicarb 19, Hgb down from prior 13 on 03/13/16 to just 9.7, K 3.0. Beta-HCG 38,183. Cervix open 1cm. (+) Lt abd tenderness, uterus displaced to Lt by large Rt adnexal mass. Despite IVF boluses, which helped HR, hypotension continued. U/S showing complex material distending endometrial cavity, & a 19.8cm Rt adnexal cyst. Attending ordered continued IVF boluses, ICU admission with plan for prompt transfer to the OR as soon as safe to do so. Status: This was a highly at-risk pt who arrived markedly hypotensive, even for a pt, with evidence of probable sepsis & excessive blood loss, with strong likelihood of much more blood loss during necessary surgery. She was so hypotensive that OB floor was not comfortable taking her from ED. She was so concerning that OB was not comfortable taking her to the OR until there was access to blood for transfusing her. She needed IVF, IV abx, multiple cultures , transfusions, & prompt surgery. She was having recurrent tachycardia in 90s- 100s, persistent hypotension as low as 72/49 & 73/46 despite fluid resuscitation , and recurrent tachypnea to 26, & Hgb had dropped even more to 8.2. Tx in inpatient hospital setting medically reasonable & necessary to protect pt' s health, safety, & medical condition. Appropriate for Inpt status. Thanks for your help with documentation accuracy/specificity improvement! Liz Muse MD [facility] Physician Advisor, Fellow of Hospital Medicine
== END 2016-03-21 10:50 | disposition home or self-care (01) | DRG 770 ==
LOC: ER 23:57 → UNDOADMIN 03-19 03:55 → EH 03-19 03:55 → 2S 03-19 17:10
PROVIDERS: ADMIT Student in an Organized Health Care Education/Training Program; ATTEND Student in an Organized Health Care Education/Training Program
PROC: 30233N1 Transfusion of Nonautologous Red Blood Cells into Peripheral Vein, Percutaneous Approach (ICD-10-PCS; 2016-03-19)
PROC: 10D17ZZ Extraction of Products of Conception, Retained, Via Natural or Artificial Opening (ICD-10-PCS; principal; 2016-03-19 16:30)
DX: O02.1 Missed abortion (principal); A41.9 Sepsis, unspecified organism; O08.82 Sepsis following ectopic and molar pregnancy; D62 Acute posthemorrhagic anemia; N83.201 Unspecified ovarian cyst, right side; F17.210 Nicotine dependence, cigarettes, uncomplicated; Z3A.15 15 weeks gestation of pregnancy
CPT/HCPCS: 1965; 36415; 36430; 71010; 76801; 76998; 80048; 80053; 80170; 81001; 83605; 84443; 84702; 85025; 85027; 86850; 86870; 86900; 86901; 86920; 86922; 87040; 87086; 87491; 87591; 88305; 93976; 96365; 96367; 96375; 99291; 99292; J0131; J0330; J1200; J1580; J2210; J2250; J2270; J2370; J2405; J2704; J2765; J3010; J3480; J3490; J7030; J7120; P9016

== ENCOUNTER 2016-03-27 18:20 | Outpatient (CLI) | payer SELFPAY ==
[2016-03-27] MEDS ORDERED: HYDROMORPHONE HCL INJ/PF 2 MG/ML AMPULE IV PRN (18:26)
[2016-03-27] MEDS ORDERED: OXYCODONE-ACETAMINOPHEN 5-325 MG TABLET PO PRN (18:34)
[2016-03-27 19:11] LABS: ABSOLUTE BASOPHILS # (AUTO) 0.1 10^3/uL (0.0-0.2); ABSOLUTE EOSINOPHILS # (AUTO) 0.2 10^3/uL (0.0-0.6); ABSOLUTE LYMPHOCYTES (AUTO) 2.6 10^3/uL (0.5-4.7); ABSOLUTE MONOCYTES (AUTO) 0.8 10^3/uL (0.1-1.4); ABSOLUTE NEUT (AUTO) 13.5 10^3/uL (1.7-8.2); BASOPHILS % (AUTO) 0.7 % (0-2); EOSINOPHILS % (AUTO) 1.4 % (0-6); HEMATOCRIT 34.2 % (36.0-47.0); HEMOGLOBIN 11.4 g/dL (12.0-15.5); MEAN CORPUSCULAR HEMOGLOBIN 30.5 pg (27.0-33.4); MEAN CORPUSCULAR HGB CONC 33.3 g/dL (32.0-36.0); MEAN CORPUSCULAR VOLUME 92 fl (80-97); MONOCYTES % (AUTO) 4.5 % (3-13); RED BLOOD COUNT 3.73 10^6/uL (3.72-5.28); RED CELL DISTRIBUTION WIDTH 13.4 % (11.5-14.0); SEGMENTED NEUTROPHILS % (AUTO) 78.4 % (42-78); WHITE BLOOD COUNT 17.2 10^3/uL (4.0-10.5)
[2016-03-27 19:27] LABS: ALANINE AMINOTRANSFERASE 20 U/L (9-52); ALBUMIN 3.6 g/dL (3.5-5.0); ALKALINE PHOSPHATASE 116 U/L (38-126); ANION GAP 12 (5-19); ASPARTATE AMINO TRANSFERASE 22 U/L (14-36); BILIRUBIN,TOTAL 0.5 mg/dL (0.2-1.3); BLOOD UREA NITROGEN 10 mg/dL (7-20); CALCIUM 9.5 mg/dL (8.4-10.2); CARBON DIOXIDE 23 mmol/L (22-30); CHLORIDE 107 mmol/L (98-107); GLUCOSE 92 mg/dL (75-110); POTASSIUM 4.7 mmol/L (3.6-5.0); SODIUM 142.2 mmol/L (137-145); TOTAL PROTEIN 7.4 g/dL (6.3-8.2)
[2016-03-27] MEDS: OXYCODONE-ACETAMINOPHEN 5-325 MG TABLET PO PRN (20:29)
[2016-03-27] MEDS: RINGERS SOLUTION,LACTATED 1,000 ML IV PRN (20:30)
--- NOTE | 2016-03-27 21:23 | TRANSFER SUMMARY E ---
Transfer Summary NAME: KARELY HOWARD : 1985 AGE: 30Y ADMITTED: 03/27/2016 TRANSFERRED: 03/27/2016 The patient presents to the office today. She has a complicated history with the loss of an approximately 15-20 weeks baby reported last week to 2 weeks ago, she is a little unclear on dates. She waited several days, she thinks possibly 3 before coming into the hospital. She had a D and C for retained products and ultrasound also showed a 20-week ovarian mass. The ovarian mass was on the right side. She had blood transfusion, IV antibiotics and a D and C last week. Pathology showed products of conception and chorioamnionitis. When I asked her if she saw a fetus, she states that both she and her were afraid to look and neither could confirm if she had passed a fetus or not. Today she is coming in. She is afebrile. Her white count is 17,000. She has a 20-cm ovarian mass and is coming in with abdominal pain. Due to the large size of the ovarian mass and the risk of malignancy, we plan to transfer her to [place] for the surgery so that [facility]/Oncology can be on standby. The patient agrees with this management. I have discussed the case with Dr. Stephens, and he accepts transfer. We will send her records as well. DICTATING PHYSICIAN: ELANA GARCIA M.D. [id number] PHY#: [id number] ID: [id number] JOB#: [id number] ACCT: [id number] cc:ELANA GARCIA M.D. >
[2016-03-27] MEDS ORDERED: GENTAMICIN SULFATE 120 MG in DEXTROSE 5%-WATER 100 ML IV SCH (22:00)
[2016-03-27] MEDS ORDERED: CLINDAMYCIN 900 MG/D5W RTU 50 ML IV SCH (22:00)
[2016-03-28] MEDS: OXYCODONE-ACETAMINOPHEN 5-325 MG TABLET PO PRN (01:46)
[2016-03-28] MEDS: RINGERS SOLUTION,LACTATED 1,000 ML IV PRN (01:47)
[2016-03-28 09:02] VITALS: BP 99/60
--- NOTE | 2016-03-28 10:45 | L&D Admission Assessment ---
LD ADM ASMT Datetime Report Generated by N: 03/28/2016 10:45 Weight (lb): 147 (03/27/2016 21:15:QS system process) Weight (lb): 323 (03/27/2016 18:23:QS system process) Weight (kg): 66.8 (03/27/2016 21:15:QS system process) Weight (kg): 146.8 (03/27/2016 18:23:QS system process) BMI: 27.8 (03/27/2016 21:15:QS system process) BMI: 65.2 (03/27/2016 18:23:QS system process)
--- NOTE | 2016-03-28 10:45 | L&D General Admission ---
General Admit Datetime Report Generated by CPN: 03/28/2016 10:45 INFORMATION Patient Age: 30 (03/19/2016 03:56:QS system process) CARE Height (in): 61 (03/27/2016 21:15:QS system process) Height (in): 61 (03/27/2016 18:23:QS system process) Height (in): 59 (03/21/2016 06:12:QS system process) Height (in): 59 (03/20/2016 08:19:QS system process) Height (in): 59 (03/19/2016 20:59:QS system process) Height (in): 59 (03/19/2016 20:55:QS system process) ALLERGIES Medication Allergies: No Known Allergies (03/13/2016) (03/19/2016 03:56:QS system process) DEMOGRAPHICS Address: [address] [place] [id number] (03/19/2016 03:56:QS system process) Zipcode: [phone] (03/19/2016 03:56:QS system process) Home (03/19/2016 03:56:QS system process) SSN: [id number] (03/19/2016 03:56:QS system process) Next of Kin Name: MARTI LANDAVERDE (03/19/2016 03:56:QS system process) Next of Kin (03/19/2016 03:56:QS system process) Next of Kin Relationship: SPO (03/19/2016 03:56:QS system process) Date of : 1985 (03/19/2016 03:56:QS system process) Marital Status: (03/19/2016 03:56:QS system process) Sex: Female (03/19/2016 03:56:QS system process) Race: Other (03/19/2016 03:56:QS system process) Ethnicity: Non- or (03/19/2016 03:56:QS system process) Yarsani: Other (03/19/2016 03:56:QS system process) LABS Hemoglobin: 11.4 L (03/27/2016 15:45:QS system process) Hemoglobin: 9.1 L (03/21/2016 07:20:QS system process) Hemoglobin: 8.9 L (03/20/2016 06:34:QS system process) Hemoglobin: 10.6 L (03/19/2016 15:15:QS system process) Hemoglobin: 8.2 L (03/19/2016 05:01:QS system process) Hematocrit: 34.2 L (03/27/2016 15:45:QS system process) Hematocrit: 27.2 L (03/21/2016 07:20:QS system process) Hematocrit: 26.7 L (03/20/2016 06:34:QS system process) Hematocrit: 31.3 L (03/19/2016 15:15:QS system process) Hematocrit: 24.2 L (03/19/2016 05:01:QS system process) MCV: 92 (03/27/2016 15:45:QS system process) MCV: 94 (03/21/2016 07:20:QS system process) MCV: 93 (03/20/2016 06:34:QS system process) MCV: 94 (03/19/2016 15:15:QS system process) MCV: 92 (03/19/2016 05:01:QS system process)
== END 2016-03-28 09:56 | disposition short-term general hospital (02) ==
LOC: LC 18:20 → UNDODISIN 03-28 09:56 → LC 03-28 09:56 → EDSTATUS 03-28 13:03
PROVIDERS: ATTEND Obstetrics & Gynecology
DX: Z01.818 Encounter for other preprocedural examination (principal); R19.00 Intra-abdominal and pelvic swelling, mass and lump, unspecified site; O02.1 Missed abortion; N83.291 Other ovarian cyst, right side
CPT/HCPCS: 36415; 84702; 85025; 80053; J1580; J7120 ×2

== ENCOUNTER 2016-09-25 12:23 | Emergency (ER) | payer SELFPAY ==
[2016-09-25] MEDS ORDERED: ACETAMINOPHEN 325 MG TABLET PO ONE (12:36)
[2016-09-25] MEDS ORDERED: NORMAL SALINE 1000 ML 1,000 ML IV ONE (12:36)
--- NOTE | 2016-09-25 12:37 | ER Document Report ---
ED Medical Screen (RME) - General Chief Complaint: Flank Pain Stated Complaint: FLANK PAIN Time Seen by Provider: 09/25/16 12:32 Mode of Arrival: Ambulatory Information source: Patient TRAVEL OUTSIDE OF THE [place] IN LAST 30 DAYS: No - HPI Patient complains to provider of: Right-sided abdominal/flank pain Onset: Other - 3 days Onset/Duration: Persistent, Worse Associated Symptoms: Diarrhea, Fever, Nausea, Vomiting Notes: 09/25/16 12:36 Patient is a 31-year-old female who presents to the emergency room complaining of 3 day history of right-sided abdominal/flank pain, associated with nausea vomiting and diarrhea as well as fever, night sweats, dysuria that she had yesterday but none today, she denies any vaginal discharge or irregular bleeding , no sick contacts, history of hysterectomy - Related Data Allergies/Adverse Reactions: No Known Allergies Allergy (Verified 09/25/16 12:32) Past Medical History Renal/ Medical History: Denies: Hx Peritoneal Dialysis Psychiatric Medical History: Denies: Hx Depression Past Surgical History: Reports: Hx Section - Pt did not have BTL during section., Hx Hysterectomy - Immunizations Immunizations up to date: No Hx Diphtheria, Pertussis, Tetanus Vaccination: No Physical Exam - Vital signs Vitals: Temp Pulse Resp BP Pulse Ox 100.3 F 124 H 16 109/62 100 09/25/16 12:29 09/25/16 12:29 09/25/16 12:29 09/25/16 12:29 09/25/16 12:29 Course - Vital Signs Vital signs: Temp Pulse Resp BP Pulse Ox 100.3 F 124 H 16 109/62 100 09/25/16 12:29 09/25/16 12:29 09/25/16 12:29 09/25/16 12:29 09/25/16 12:29
[2016-09-25 13:11] LABS: ABSOLUTE BASOPHILS # (AUTO) 0.1 10^3/uL (0.0-0.2); ABSOLUTE MONOCYTES (AUTO) 2.1 10^3/uL (0.1-1.4); ABSOLUTE NEUT (AUTO) 14.9 10^3/uL (1.7-8.2); BASOPHILS % (AUTO) 0.4 % (0-2); HEMATOCRIT 41.9 % (36.0-47.0); HEMOGLOBIN 14.1 g/dL (12.0-15.5); HGB HCT DIFFERENCE 0.4; LYMPHOCYTES % (AUTO) 10.5 % (13-45); MEAN CORPUSCULAR HEMOGLOBIN 31.1 pg (27.0-33.4); MEAN CORPUSCULAR HGB CONC 33.7 g/dL (32.0-36.0); MEAN CORPUSCULAR VOLUME 92 fl (80-97); MONOCYTES % (AUTO) 11.2 % (3-13); RED BLOOD COUNT 4.54 10^6/uL (3.72-5.28); RED CELL DISTRIBUTION WIDTH 13.7 % (11.5-14.0); SEGMENTED NEUTROPHILS % (AUTO) 77.9 % (42-78); WHITE BLOOD COUNT 19.1 10^3/uL (4.0-10.5)
[2016-09-25 13:17] LABS: PROTHROMBIN TIME 12.6 SEC (11.4-15.4)
[2016-09-25] MEDS ORDERED: CEFTRIAXONE 2 GM/D5W RTU 2 GM/50 ML RTUPB IV ONE (13:18)
[2016-09-25 13:20] LABS: VENOUS BLOOD HCO3 26.7 mmol/L (20-32); VENOUS BLOOD PCO2 46.5 mmHg (35-63); VENOUS BLOOD PH 7.38 (7.30-7.42)
[2016-09-25 13:22] LABS: APPEARANCE,URINE SLIGHTLY-CLOUDY; BILIRUBIN,URINE NEGATIVE (NEGATIVE); GLUCOSE, URINE NEGATIVE (NEGATIVE); KETONES,URINE NEGATIVE (NEGATIVE); LEUKOCYTE ESTERASE,URINE SMALL (NEGATIVE); NITRITE,URINE NEGATIVE (NEGATIVE); PROTEIN,URINE >=500 mg/dL (NEGATIVE); URINE SPECIFIC GRAVITY 1.013
--- NOTE | 2016-09-25 13:23 | ER Document Report ---
ED GI/ - General Chief Complaint: Flank Pain Stated Complaint: FLANK PAIN Time Seen by Provider: 09/25/16 12:32 Mode of Arrival: Ambulatory Notes: Patient says that she has been experiencing pain in her right side and back area for the past 3 days. It comes and goes but is there more than it is gone. She has had some nausea and vomited yesterday. Also had some diarrhea. Denies having UTI symptoms and is not diagnosed in the past as having UTIs. Did note that she feels hot like a fever. No abdominal pains in the front of the abdomen. Denies any UTI symptoms. No cough or cold or chest congestion. PMH: Hysterectomy. TRAVEL OUTSIDE OF THE [place] IN LAST 30 DAYS: No - Related Data Allergies/Adverse Reactions: No Known Allergies Allergy (Verified 09/25/16 12:32) Past Medical History - General Information source: Patient - Social History Smoking Status: Current Every Day Smoker Chew tobacco use (# tins/day): No Frequency of alcohol use: None Drug Abuse: None Family History: None, Reviewed & Not Pertinent Psychiatric Medical History: Denies: Hx Depression Past Surgical History: Reports: Hx Section - Pt did not have BTL during section., Hx Hysterectomy - Immunizations Immunizations up to date: No Hx Diphtheria, Pertussis, Tetanus Vaccination: No Review of Systems - Review of Systems Notes: REVIEW OF SYSTEMS: CONSTITUTIONAL : Think she has had a fever. EENT: Denies eye, ear, nose or mouth or throat pain or other symptoms. CARDIOVASCULAR: Denies chest pain. RESPIRATORY: Denies cough, chest congestion, or shortness of breath. GASTROINTESTINAL: See HPI. GENITOURINARY: Denies difficulty or painful urinating, urinary frequency, blood in urine. MUSCULOSKELETAL: Denies back or neck pain. Denies joint pain or swelling. SKIN: Denies rash or skin lesions. NEUROLOGICAL: Denies LOC or altered mental status. Denies headache. Denies sensory loss or motor deficits. ALL OTHER SYSTEMS REVIEWED AND NEGATIVE. Physical Exam - Vital signs Vitals: Temp Pulse Resp BP Pulse Ox 100.3 F 124 H 16 109/62 100 09/25/16 12:29 09/25/16 12:29 09/25/16 12:29 09/25/16 12:29 09/25/16 12:29 Interpretation: Tachycardic, Febrile - Notes Notes: PHYSICAL EXAMINATION: GENERAL: Well-appearing, in no acute distress. Fever and tachycardia noted. HEAD: Atraumatic, normocephalic. ENT: oropharynx clear without exudates. Moist mucous membranes. NECK: Normal range of motion, supple. LUNGS: Breath sounds clear and equal bilaterally. HEART: Regular rate and rhythm without murmurs. ABDOMEN: Soft, nontender. No guarding or rebound. No tenderness in the right upper quadrant and no tenderness in the right lower quadrant. BACK: No tenderness throughout entire back. Mild percussion tenderness in the right flank region. EXTREMITIES: Normal range of motion without pain. NEUROLOGICAL: Normal speech, normal gait. Normal sensory, motor, and reflex exams. Awake, alert, and oriented x3. Cranial nerves normal. PSYCH: Normal mood, normal affect. SKIN: Warm, dry, no rashes. Course - Vital Signs Vital signs: Temp Pulse Resp BP Pulse Ox 100.3 F 124 H 16 109/62 100 09/25/16 12:29 09/25/16 12:29 09/25/16 12:29 09/25/16 12:29 09/25/16 12:29 - Laboratory Result Diagrams: 09/25/16 12:40 09/25/16 12:40 Laboratory results interpreted by me: 09/25/16 09/25/16 09/25/16 12:40 12:40 12:40 WBC 19.1 H Lymphocytes % 10.5 L Absolute Neutrophils 14.9 H Absolute Monocytes 2.1 H Sodium 136.1 L Potassium 3.2 L Est GFR (Non-Af Amer) 58 L Glucose 118 H Direct Bilirubin 0.6 H AST 55 H ALT 59 H Alkaline Phosphatase 144 H Total Protein 8.6 H Urine Protein >=500 H Urine Blood LARGE H Urine Urobilinogen 4.0 H Ur Leukocyte Esterase SMALL H - EKG Interpretation by Or EKG shows normal: Sinus rhythm Rate: Normal, Tachycardia Rhythm: NSR Additional EKG results interpreted by ky: 09/25/16 13:25 EKG is normal. Discharge - Discharge Clinical Impression: UTI (urinary tract infection), Pyelonephritis Condition: Stable Disposition: HOME, SELF-CARE Additional Instructions: URINARY TRACT INFECTION: Your evaluation indicates that you have a urinary tract infection. This is due to germs growing in the bladder. This is a common problem. This infection usually responds quickly to antibiotics. Your antibiotic should be taken exactly as prescribed. Drink plenty of fluids -- three to four quarts a day. Occasionally, a bladder anesthetic will be prescribed to help stop the feeling of urgency until the antibiotic has a chance to clear the infection. This may cause your urine to be dark orange. Certain urine infections require a culture. If the doctor obtained a culture, the results will be back in two days. You should call to see if a change in treatment is needed. A repeat urinalysis after you finish treatment is often recommended. The physician will let you know if further testing is required. Call the doctor if you develop fever, chills, flank pain, inability to urinate, or blood in the urine. Pyelonephritis Your evaluation shows evidence of pyelonephritis. This is an infection in the kidney. Typical symptoms are fever, pain in the flank, pain on urination, and frequent urination. Many cases of pyelonephritis can be treated at home. Hospital care may be necessary for patients who are very ill, or elderly or . Pyelonephritis is treated with antibiotics. Be sure to take all the medication as prescribed. Drink plenty of liquids (about three quarts per day) . You may take acetaminophen for fever. You should feel significantly improved within two days. You should have a recheck of your urine in about one week to insure that the infection is gone. Return for a re-examination if your symptoms worsen in any way -- such as high fever, shaking chills, severe weakness or dizziness, severe pain, or inability to pass your urine. ANTIBIOTIC THERAPY: You have been given an antibiotic prescription. It's important that you take all the medication, unless instructed otherwise by your physician. Failure to complete the entire course can result in relapse of your condition. Common side effects of antibiotics include nausea, intestinal cramping, or diarrhea. Women may develop vaginal yeast infections, and babies can get yeast (thrush) in the mouth following the use of antibiotics. Contact your physician if you develop significant side effects from this medication. Allergy to this antibiotic can result in hives, wheezing, faintness, or itching. If symptoms of allergy occur, stop the medication and call the doctor. Rocephin You have been given an injection of an antibiotic called Rocephin ( ceftriaxone). Sometimes the injection must be combined with antibiotic pills. For some infections, such as an uncomplicated ear infection, Rocephin provides all the antibiotic that's needed. The antibiotic will be in your body for about two days. For serious infections, we usually repeat doses of Rocephin daily. Side effects are very unusual following a shot. Women may develop vaginal yeast infections, and babies can get yeast (thrush) in the mouth following the use of antibiotics. Contact your physician if you have symptoms with this medication. Allergy to this antibiotic can result in hives, wheezing, faintness, or itching. If symptoms of allergy occur, call the doctor at once. NITROFURANTOIN (MACRODANTIN, MACROBID): You have received a prescription for nitrofurantoin (Macrodantin). This antibiotic is used for urinary tract infections. Women who are or nursing should notify the physician before taking this medicine. If you have ever had a problem caused by this medication in the past, be sure the physician is aware of it. Common side effects of this medicine include nausea, vomiting, or decreased appetite. Notify your physician if these side effects become severe. Immediately stop this medicine and call the physician if you develop cough , shortness of breath, chest pain, weakness, jaundice (yellow color of the skin and whites of the eyes), or a skin rash. Oral Narcotic Medication You have been given a prescription for pain control. This medication is a narcotic. It's best taken with food, as nausea can result if taken on an empty stomach. Don't operate machinery or drive within six hours of taking this medication. Do not combine this medicine with alcohol, or with any medication which can cause sedation (such as cold tablets or sleeping pills) unless you get permission from the physician. Narcotics tend to cause constipation. If possible, drink plenty of fluids and eat a diet high in fiber and fruits. FOLLOW-UP CARE: If you have been referred to a physician for follow-up care, call the physician s office for an appointment as you were instructed or within the next two days. If you experience worsening or a significant change in your symptoms, notify the physician immediately or return to the Emergency Department at any time for re-evaluation. Prescriptions: Nitrofurantoin/Nitrofuran Mac [Macrobid 100 mg Capsule] 1 tab PO BID #14 capsule Oxycodone HCl/Acetaminophen [Percocet 5-325 mg Tablet] 1 - 2 tab PO Q4H PRN #15 tablet PRN Reason: Forms: Return to Work
[2016-09-25 13:33] LABS: ALANINE AMINOTRANSFERASE 59 U/L (9-52); ALBUMIN 4.3 g/dL (3.5-5.0); ALKALINE PHOSPHATASE 144 U/L (38-126); ANION GAP 14 (5-19); ASPARTATE AMINO TRANSFERASE 55 U/L (14-36); BILIRUBIN,DIRECT 0.6 mg/dL (0.0-0.4); BILIRUBIN,TOTAL 0.7 mg/dL (0.2-1.3); BLOOD UREA NITROGEN 10 mg/dL (7-20); CALCIUM 9.4 mg/dL (8.4-10.2); CARBON DIOXIDE 24 mmol/L (22-30); CHLORIDE 98 mmol/L (98-107); CREATININE RESULT 1.11 mg/dL (0.52-1.25); GLUCOSE 118 mg/dL (75-110); POTASSIUM 3.2 mmol/L (3.6-5.0); SODIUM 136.1 mmol/L (137-145); TOTAL PROTEIN 8.6 g/dL (6.3-8.2)
--- NOTE | 2016-09-25 13:41 | EKG REPORT ---
SEVERITY:- ABNORMAL ECG - SINUS TACHYCARDIA NONSPECIFIC ST-T CHANGES- INFERIOR LEADS : Confirmed by: Kareem Alonzo MD 25-Sep-2016 13:40:16
[2016-09-25 15:29] VITALS: BP 113/55
== END 2016-09-25 15:28 | disposition home or self-care (01) ==
LOC: ER 12:23
DX: N12 Tubulo-interstitial nephritis, not specified as acute or chronic (principal); R11.2 Nausea with vomiting, unspecified; R19.7 Diarrhea, unspecified; R50.9 Fever, unspecified; R00.0 Tachycardia, unspecified; F17.200 Nicotine dependence, unspecified, uncomplicated; Z98.51 Tubal ligation status
CPT/HCPCS: 93005; 99284; 96365; 36415; 87040; 87086; 85025; 85610; 87088; 80053; 81001; 87186; 82803; 83605; 93010; J7030; J0696

== ENCOUNTER 2017-08-29 16:16 | Emergency (ER) | payer SELFPAY ==
--- NOTE | 2017-08-29 16:34 | ER Document Report ---
HPI - HPI Patient complains to provider of: Left axilla abscess Onset: Last week Pain Level: 2 Context: 32-year-old complaining of abscess under the left arm. No previous diagnosis of hidradenitis supporativa but she gets these every several months. No fever or chills. Exacerbated by: Movement Relieved by: Denies - ROS ROS below otherwise negative: Yes Systems Reviewed and Negative: Yes All other systems reviewed and negative - REPRODUCTIVE Reproductive: DENIES: : Past Medical History - General Information source: Patient - Social History Smoking Status: Unknown if Ever Smoked Frequency of alcohol use: None Drug Abuse: None Lives with: Family Family History: None, Reviewed & Not Pertinent - Medical History Medical History: Negative Renal/ Medical History: Denies: Hx Peritoneal Dialysis Psychiatric Medical History: Denies: Hx Depression Past Surgical History: Reports: Hx Section - Pt did not have BTL during section., Hx Hysterectomy - Immunizations Immunizations up to date: No Hx Diphtheria, Pertussis, Tetanus Vaccination: No Vertical Provider Document - CONSTITUTIONAL Agree With Documented VS: Yes Exam Limitations: No Limitations General Appearance: No Apparent Distress - INFECTION CONTROL TRAVEL OUTSIDE OF THE [place] IN LAST 30 DAYS: No - NECK Neck: Supple - MUSCULOSKELETAL/EXTREMETIES Musculoskeletal/Extremeties: Tender, Edema - Erythematous tender abscess 2 under the left axilla - NEURO Level of Consciousness: Alert - DERM Integumentary: Abscess Procedures - Incision and Drainage Left Arm Time completed: 17:30 Type: Simple Anesthetic type: 1% Lidocaine mL's of anesthetic: 4 Blade size: 11 I&D procedure: Betadine prep applied, Sterile dressing applied Incision Method: Incision made by scalpel - 2 and both lesions drained a lot of pus. When I was irrigating they were communicating incisions Discharge - Discharge Clinical Impression: Left axilla abscess was I&D Condition: Good Disposition: HOME, SELF-CARE Instructions: Abscess ([facility]), Ibuprofen (General) ([facility]), Post Incision and Drainage, Trimethoprim-Sulfa ([facility]), Warm Packs ([facility]) Additional Instructions: Warm compress wash in shower with washcloth and antibacterial soap Motrin Tylenol Antibiotics Return for worsening of the symptoms to the emergency department or if this is not resolved in 2 weeks Prescriptions: Ibuprofen [Motrin 600 mg Tablet] 600 mg PO Q8HP PRN #30 tablet PRN Reason: Sulfamethoxazole/Trimethoprim [Sulfamethoxazole-Tmp Ds Tablet] 1 each PO BID # 14 tablet Forms: Return to Work
[2017-08-29 16:36] VITALS: BP 104/68
[2017-08-29] MEDS ORDERED: SULFAMETHOXAZOLE/TRIMETHOPRIM 800-160 MG TABLET PO ONE (16:44)
[2017-08-29] MEDS ORDERED: IBUPROFEN 800 MG TABLET PO ONE (16:45)
[2017-08-29] MEDS ORDERED: LIDOCAINE 4%/TETRACAINE 0.5%/EPI 0.18% 5 ML TOPICAL SOLN TOP ONE (16:45)
[2017-08-29] MEDS: ACETAMINOPHEN 325 MG TABLET PO ONE (17:04)
== END 2017-08-29 17:43 | disposition home or self-care (01) ==
LOC: ER 16:16
DX: L02.412 Cutaneous abscess of left axilla (principal)
CPT/HCPCS: 99283; 10061; J3490

== ENCOUNTER 2018-02-13 15:30 | Emergency (ER) | payer SELFPAY ==
[2018-02-13 15:38] VITALS: BP 116/73
[2018-02-13] MEDS ORDERED: HYDROCODONE/ACETAMINOPHEN 5-325 MG TABLET PO ONE (16:58)
--- NOTE | 2018-02-13 16:59 | ER Document Report ---
ED Medical Screen (RME) - General Chief Complaint: Abscess Stated Complaint: BREAST PAIN Time Seen by Provider: 02/13/18 16:56 Mode of Arrival: Ambulatory Information source: Patient Notes: Patient complains of left breast tenderness with redness. Patient states she had some drainage today from an area just beside the nipple. Patient states she has had previous abscess to the left breast in the past. Patient denies any fever. I have greeted and performed a rapid initial assessment of this patient. A comprehensive ED assessment and evaluation of the patient, analysis of test results and completion of the medical decision making process will be conducted by additional ED providers. TRAVEL OUTSIDE OF THE [place] IN LAST 30 DAYS: No - Related Data Allergies/Adverse Reactions: No Known Allergies Allergy (Verified 02/13/18 15:32) Past Medical History - Social History Chew tobacco use (# tins/day): No Frequency of alcohol use: None Drug Abuse: None Renal/ Medical History: Denies: Hx Peritoneal Dialysis Psychiatric Medical History: Denies: Hx Depression Past Surgical History: Reports: Hx Section - Pt did not have BTL during section., Hx Hysterectomy - Immunizations Immunizations up to date: No Hx Diphtheria, Pertussis, Tetanus Vaccination: No Physical Exam - Vital signs Vitals: Temp Pulse Resp BP Pulse Ox 98.6 F 81 16 116/73 99 02/13/18 15:36 02/13/18 15:36 02/13/18 15:36 02/13/18 15:36 02/13/18 15:36 - Skin Skin Color: Erythema - Erythema surrounding Eliza of left breast concerning for cellulitis, crusted area at the 9 o'clock position just lateral of the nipple Course - Vital Signs Vital signs: Temp Pulse Resp BP Pulse Ox 98.6 F 81 16 116/73 99 02/13/18 15:36 02/13/18 15:36 02/13/18 15:36 02/13/18 15:36 02/13/18 15:36
[2018-02-13 17:59] LABS: ABSOLUTE BASOPHILS # (AUTO) 0.2 10^3/uL (0.0-0.2); ABSOLUTE EOSINOPHILS # (AUTO) 0.2 10^3/uL (0.0-0.6); ABSOLUTE LYMPHOCYTES (AUTO) 3.3 10^3/uL (0.5-4.7); ABSOLUTE MONOCYTES (AUTO) 0.7 10^3/uL (0.1-1.4); ABSOLUTE NEUT (AUTO) 8.6 10^3/uL (1.7-8.2); BASOPHILS % (AUTO) 1.2 % (0-2); EOSINOPHILS % (AUTO) 1.6 % (0-6); HEMATOCRIT 43.1 % (36.0-47.0); HEMOGLOBIN 14.6 g/dL (12.0-15.5); LYMPHOCYTES % (AUTO) 25.3 % (13-45); MEAN CORPUSCULAR HEMOGLOBIN 32.2 pg (27.0-33.4); MEAN CORPUSCULAR HGB CONC 33.8 g/dL (32.0-36.0); MEAN CORPUSCULAR VOLUME 95 fl (80-97); MONOCYTES % (AUTO) 5.6 % (3-13); PLATELET COUNT 311 10^3/uL (150-450); RED BLOOD COUNT 4.53 10^6/uL (3.72-5.28); RED CELL DISTRIBUTION WIDTH 12.4 % (11.5-14.0); SEGMENTED NEUTROPHILS % (AUTO) 66.3 % (42-78); TOTAL CELLS COUNTED % (AUTO) 100 %
[2018-02-13 18:10] LABS: ANION GAP 9 (5-19); BLOOD UREA NITROGEN 14 mg/dL (7-20); CALCIUM 9.3 mg/dL (8.4-10.2); CARBON DIOXIDE 27 mmol/L (22-30); CHLORIDE 105 mmol/L (98-107); GLUCOSE 86 mg/dL (75-110); POTASSIUM 3.7 mmol/L (3.6-5.0); SODIUM 140.9 mmol/L (137-145)
--- NOTE | 2018-02-13 18:45 | RADIOLOGY REPORT (SQ) ---
EXAM DESCRIPTION: U/S BREAST UNILATERAL LIMITED COMPLETED DATE/TIME: 02/13/2018 5:46 pm REASON FOR STUDY: eval for abscess L breast COMPARISON: None. TECHNIQUE: Static and Realtime grayscale interrogation of focal areas of concern in the Left retroar eolar region acquired. Selected color doppler/spectral images saved to PACS. ELASTOGRAPHY PERFORMED: No. LIMITATIONS: None. FINDINGS: Masses:No cystic or solid masses identified. Architecture:No alteration of normal morphology. No skin thickening. No edema. Elastography characteristics: Not applicable. Other: None. IMPRESSION: No suspicious findings detected by ultrasound. BIRAD: 1 Negative. RECOMMENDATION: RECOMMENDED FOLLOW-UP: Follow-up as clinically indicated. COMMENT: PATIENT NOTIFIED BY LETTER. [employer], [employer] [place] [employer], and [place] [employer] recommend an annual screening mammogram for women aged 40 years or over. Each patient will recei ve a reminder prior to the anniversary date of her mammogram. The [place] [employer] ([employer]) has developed recommendations for screening MRI of the breast s in certain patient populations, to be used in conjunction with mammography. Breast MRI surveillanc e may be appropriate for women with more than 20% lifetime risk of developing breast cancer as deter mined by genetic testing, significant family history of the disease, or history of mantle radiation f or Hodgkins Disease. [employer] Practice Guidelines 2008. TECHNICAL DOCUMENTATION: FINDING NUMBER: (1) ASSESSMENT: (1) JOB ID: [id number] [employer]- All Rights Reserved Reading location - IP/workstation name: [email or web address]
== END 2018-02-13 20:33 | disposition left against medical advice (07) ==
LOC: ER 15:30
DX: N64.4 Mastodynia (principal); N64.59 Other signs and symptoms in breast; L53.9 Erythematous condition, unspecified; Z53.20 Procedure and treatment not carried out because of patient's decision for unspecified reasons
CPT/HCPCS: 36415; 76642; 80048; 85025; 99281

== ENCOUNTER 2019-11-30 15:04 | Emergency (ER) | payer SELFPAY ==
[2019-11-30 15:21] VITALS: BP 94/68
--- NOTE | 2019-11-30 16:02 | ER Document Report ---
ED Medical Screen (RME) - General Chief Complaint: Abscess Stated Complaint: ABSCESS/LEFT ARMPIT Time Seen by Provider: 11/30/19 15:58 TRAVEL OUTSIDE OF THE [place] IN LAST 30 DAYS: No - HPI Notes: 11/30/19 16:01 34-year-old female to the emergency department with complaints of a progressively worsening abscess to her left arm since last . She states it started as redness and then quickly got bigger. She states is not been actively draining. She states she has had 1 of these several years ago but nothing this significant. Denies fevers or chills. States it hurts to lift the arm. She is not diabetic. She states she got concerned when the area got significantly larger today. Medical screening exam reveals a large fluctuant abscess to the left upper arm just distal to the axilla. There is a large area of cellulitis with some streaking lymphangitis down to the elbow. I performed a brief medical screening exam on the patient determined that the patient needs further evaluation and management by main side provider. I have placed initial orders to help expedite care. - Related Data Allergies/Adverse Reactions: No Known Allergies Allergy (Verified 11/30/19 15:55) Past Medical History - Social History Chew tobacco use (# tins/day): No Frequency of alcohol use: None Drug Abuse: None Renal/ Medical History: Denies: Hx Peritoneal Dialysis Psychiatric Medical History: Denies: Hx Depression Past Surgical History: Reports: Hx Section - Pt did not have BTL during section., Hx Hysterectomy - Immunizations Immunizations up to date: No Hx Diphtheria, Pertussis, Tetanus Vaccination: No Physical Exam - Vital signs Vitals: Temp Pulse Resp BP Pulse Ox 98.8 F 93 18 94/68 L 98 11/30/19 15:20 11/30/19 15:20 11/30/19 15:20 11/30/19 15:20 11/30/19 15:20 Course - Vital Signs Vital signs: Temp Pulse Resp BP Pulse Ox 98.8 F 93 18 94/68 L 98 11/30/19 15:20 11/30/19 15:20 11/30/19 15:20 11/30/19 15:20 11/30/19 15:20
[2019-11-30 16:52] LABS: ABSOLUTE BASOPHILS # (AUTO) 0.1 10^3/uL (0.0-0.2); ABSOLUTE EOSINOPHILS # (AUTO) 0.3 10^3/uL (0.0-0.6); ABSOLUTE LYMPHOCYTES (AUTO) 2.6 10^3/uL (0.5-4.7); ABSOLUTE MONOCYTES (AUTO) 1.1 10^3/uL (0.1-1.4); ABSOLUTE NEUT (AUTO) 9.1 10^3/uL (1.7-8.2); BASOPHILS % (AUTO) 0.7 % (0-2); HEMATOCRIT 40.2 % (36.0-47.0); HEMOGLOBIN 13.9 g/dL (12.0-15.5); LYMPHOCYTES % (AUTO) 19.6 % (13-45); MEAN CORPUSCULAR HEMOGLOBIN 32.6 pg (27.0-33.4); MEAN CORPUSCULAR HGB CONC 34.5 g/dL (32.0-36.0); MEAN CORPUSCULAR VOLUME 94 fl (80-97); MONOCYTES % (AUTO) 8.2 % (3-13); PLATELET COUNT 345 10^3/uL (150-450); RED BLOOD COUNT 4.25 10^6/uL (3.72-5.28); RED CELL DISTRIBUTION WIDTH 12.6 % (11.5-14.0); SEGMENTED NEUTROPHILS % (AUTO) 69.5 % (42-78); TOTAL CELLS COUNTED % (AUTO) 100 %; WHITE BLOOD COUNT 13.1 10^3/uL (4.0-10.5)
--- NOTE | 2019-11-30 16:56 | RADIOLOGY REPORT (SQ) ---
EXAM DESCRIPTION: HUMERUS LEFT IMAGES COMPLETED DATE/TIME: 11/30/2019 4:47 pm REASON FOR STUDY: abscess with cellulitis, eval osteo COMPARISON: None. NUMBER OF VIEWS: Two views. TECHNIQUE: Two radiographic images were acquired of the left humerus to include elbow and shoulder i n at least one projection. LIMITATIONS: None. FINDINGS: MINERALIZATION: Normal. BONES: No acute fracture or dislocation. No worrisome bone lesions. No significant osteophytes. SOFT TISSUES: No obvious swelling or foreign body. OTHER: No other significant finding. IMPRESSION: NEGATIVE STUDY OF THE LEFT HUMERUS. NO RADIOGRAPHIC EVIDENCE OF OSTEOMYELITIS. TECHNICAL DOCUMENTATION: JOB ID: [id number] 2010 [employer]- All Rights Reserved Reading location - IP/workstation name: [email or web address]
[2019-11-30 17:12] LABS: ALBUMIN 4.1 g/dL (3.5-5.0); ALKALINE PHOSPHATASE 84 U/L (38-126); ANION GAP 10 (5-19); ASPARTATE AMINO TRANSFERASE 17 U/L (14-36); BILIRUBIN,DIRECT 0.3 mg/dL (0.0-0.4); BILIRUBIN,TOTAL 0.4 mg/dL (0.2-1.3); BLOOD UREA NITROGEN 8 mg/dL (7-20); CALCIUM 9.2 mg/dL (8.4-10.2); CARBON DIOXIDE 24 mmol/L (22-30); CHLORIDE 105 mmol/L (98-107); GLUCOSE 101 mg/dL (75-110); POTASSIUM 4.1 mmol/L (3.6-5.0); TOTAL PROTEIN 7.7 g/dL (6.3-8.2)
[2019-11-30] MEDS ORDERED: CEFAZOLIN 1 GM/D5W RTU 1 GM/50 ML RTUPB IV ONE (19:31)
[2019-11-30] MEDS ORDERED: SULFAMETHOXAZOLE/TRIMETHOPRIM 800-160 MG TABLET PO ONE (19:32)
[2019-11-30] MEDS ORDERED: KETOROLAC TROMETHAMINE INJ/PF 30 MG/1 ML SDV IV ONE (19:33)
[2019-11-30] MEDS ORDERED: METOCLOPRAMIDE HCL INJ/PF 10 MG/2 ML SDV IV ONE (19:33)
[2019-11-30] MEDS ORDERED: LIDOCAINE 1%/EPINEPHRINE INJ 20 ML VIAL INJ ONE (19:33)
[2019-11-30] MEDS ORDERED: HYDROMORPHONE HCL INJ/PF 2 MG/ML AMPULE IV ONE (19:33)
--- NOTE | 2019-11-30 19:36 | ER Document Report ---
ED General - General Chief Complaint: Abscess Stated Complaint: ABSCESS/LEFT ARMPIT Time Seen by Provider: 11/30/19 15:58 Mode of Arrival: Ambulatory Information source: Patient Notes: Patient is a 34-year-old female who comes in today with left upper arm abscess and cellulitis. She has no diabetes. No immune compromise. No HIV/AIDS. Symptoms started 2 or 3 days ago with abscess and it progressively got worse. She has no fevers or shaking chills. No nausea vomiting or diarrhea. TRAVEL OUTSIDE OF THE [place] IN LAST 30 DAYS: No - Related Data Allergies/Adverse Reactions: No Known Allergies Allergy (Verified 11/30/19 15:55) Past Medical History - Social History Smoking Status: Current Every Day Smoker Chew tobacco use (# tins/day): No Frequency of alcohol use: None Drug Abuse: None Family History: None, Reviewed & Not Pertinent Patient has homicidal ideation: No Renal/ Medical History: Denies: Hx Peritoneal Dialysis Psychiatric Medical History: Denies: Hx Depression Past Surgical History: Reports: Hx Section - Pt did not have BTL during section., Hx Hysterectomy - Immunizations Immunizations up to date: No Hx Diphtheria, Pertussis, Tetanus Vaccination: No Review of Systems - Review of Systems Notes: Constitutional: No fevers. No chills. EENT: No eye redness. No eye pain. No ear pain. No sore throat. Cardiovascular: No chest pain. No palpitations. Respiratory: No cough. No shortness of breath. No respiratory distress. Gastrointestinal: No abdominal pain. No nausea, vomiting, or diarrhea. Genitourinary: Atraumatic. No lesions. No pain. No discharge. Musculoskeletal: Atraumatic. No swelling. No deformities. Skin: Positive for abscess left arm Lymphatic: No swollen lymph nodes. Neurologic: No headache. No syncope. Psychiatric: No suicidal or homicidal ideation. Physical Exam - Vital signs Vitals: Temp Pulse Resp BP Pulse Ox 98.8 F 93 18 94/68 L 98 11/30/19 15:20 11/30/19 15:20 11/30/19 15:20 11/30/19 15:20 11/30/19 15:20 - Notes Notes: General: Well-developed, well-nourished. In no acute distress. Non-toxic appearing. Cardiac: Well-perfused. Regular rate and rhythm. No murmurs, rubs, or gallops. Pulmonary: No respiratory distress. No cyanosis. Bilateral lung sherman are clear to auscultation. Abdominal: Non-distended. Non-rigid. Bowels sounds are present in all four quadrants. No guarding or rebound. HEENT: Head is atraumatic. Conjunctivae not reddened. No tearing. PERRL. EOMI. Orbits atraumatic. No periorbital swelling or erythema. Oropharynx is without erythema, swelling, or exudates. Neck: Supple. No adenopathy. No meningismus. Dermatologic: Large fluctuant abscess left upper arm, inner aspect with bony lulitis. No subcutaneous crepitus Chest: Atraumatic. No chest wall tenderness to palpation. Musculoskeletal: Moves all extremities well. No range of motion deficits. no muscular or joint tenderness. No paraspinal muscle tenderness. no midline spinal tenderness or step-off. Genitourinary: Examination deferred Neurologic: No gross neurologic deficits. Psychiatric: Normal mood. Course - Re-evaluation Re-evalutation: 11/30/19 19:36 Patient has a 13,000 white count. No fevers or shaking chills. No sign of gangrene or necrotizing fasciitis. Patient reports no immune compromise. Will incise and drain and culture of the abscess. We will need to follow her closely in the emergency department. - Vital Signs Vital signs: Temp Pulse Resp BP Pulse Ox 98.8 F 93 18 94/68 L 98 11/30/19 15:20 11/30/19 15:20 11/30/19 15:20 11/30/19 15:20 11/30/19 15:20 - Laboratory Result Diagrams: 11/30/19 16:26 11/30/19 16:26 Laboratory results interpreted by me: 11/30/19 16:26 WBC 13.1 H Absolute Neuts (auto) 9.1 H Procedures - Incision and Drainage Left Upper Arm Time completed: 20:36 Type: Simple Anesthetic type: 1% Lidocaine w/epi mL's of anesthetic: 6 Blade size: 11 I&D procedure: Shurclens applied Incision Method: Incision made by scalpel Amount/type of drainage: moderate Notes: 11/30/19 20:36 Underlying loculations/connections opened up with needle drivers. Patient tolerated well. Purulent drainage from the abscess was collected for culture and sensitivity earlier in [facility] 11/30/19 20:37 10 20:37 11/30/19 20:38 Appropriate purple line drawn around the area of cellulitis. We will recheck patient tomorrow Discharge - Discharge Clinical Impression: Abscess of left arm, Tobacco abuse Condition: Good Disposition: HOME, SELF-CARE Instructions: Abscess ([facility]), Cephalexin ([facility]), Oral Narcotic Medication ([facility]), Trimethoprim-Sulfa ([facility]), Post Incision and Drainage Additional Instructions: You need to start the prescribed antibiotics tomorrow morning. You do not need to take any more antibiotics this evening. You will get a take-home pack of pain medication that you may take every 6 hours as needed for severe pain. We will expect to see you in about 24 hours for a recheck of your infection. Prescriptions: Sulfamethoxazole/Trimethoprim [Bactrim Ds Tablet] 1 each PO BID 10 Days #20 tablet Cephalexin Monohydrate [Keflex 500 mg Capsule] 500 mg PO Q6H 10 Days #40 capsule Forms: Smoking Cessation Education
[2019-11-30] MEDS ORDERED: HYDROCODONE/ACETAMINOPHEN 5-325 MG (6 TAB/ER DISP) PO PRN (20:40)
== END 2019-11-30 21:00 | disposition home or self-care (01) ==
LOC: ER 15:04
DX: L02.412 Cutaneous abscess of left axilla (principal); F17.200 Nicotine dependence, unspecified, uncomplicated
CPT/HCPCS: 99284; 96375; 96365; 36415; 87040; 87070; 87205; 85025; 87077; 80053; 73060; 10060; J0690; J3490; J1885; J2765; J1170

== ENCOUNTER 2019-12-01 14:07 | Emergency (ER) | payer SELFPAY ==
[2019-12-01 14:14] VITALS: BP 98/59
--- NOTE | 2019-12-01 14:29 | ER Document Report ---
ED Medical Screen (RME) - General Chief Complaint: Wound Recheck Stated Complaint: RECHECK ABSCESS Time Seen by Provider: 12/01/19 14:16 Mode of Arrival: Ambulatory Notes: Patient presents for a wound check. Patient had an abscess incision and drainage procedure performed yesterday. Patient states she has been taking her antibiotics as prescribed. Patient reports arm is feeling better today although still has erythema surrounding abscess. I have greeted and performed a rapid initial assessment of this patient. A comprehensive ED assessment and evaluation of the patient, analysis of test results and completion of the medical decision making process will be conducted by additional ED providers. TRAVEL OUTSIDE OF THE [place] IN LAST 30 DAYS: No - Related Data Allergies/Adverse Reactions: No Known Allergies Allergy (Verified 11/30/19 15:55) Past Medical History Renal/ Medical History: Denies: Hx Peritoneal Dialysis Psychiatric Medical History: Denies: Hx Depression Past Surgical History: Reports: Hx Section - Pt did not have BTL during section., Hx Hysterectomy - Immunizations Immunizations up to date: No Hx Diphtheria, Pertussis, Tetanus Vaccination: No Physical Exam - Vital signs Vitals: Temp Pulse Resp BP Pulse Ox 98.6 F 88 16 98/59 L 96 12/01/19 14:13 12/01/19 14:13 12/01/19 14:13 12/01/19 14:13 12/01/19 14:13 - General General appearance: Appears well Notes: Erythema surrounding abscess to left axilla Course - Re-evaluation Re-evalutation: 12/01/19 14:29 KATIE Stewart advised of patient's presentation to ER for recheck - Vital Signs Vital signs: Temp Pulse Resp BP Pulse Ox 98.6 F 88 16 98/59 L 96 12/01/19 14:13 12/01/19 14:13 12/01/19 14:13 12/01/19 14:13 12/01/19 14:13
--- NOTE | 2019-12-01 14:56 | ER Document Report ---
ED General - General Chief Complaint: Wound Recheck Stated Complaint: RECHECK ABSCESS Time Seen by Provider: 12/01/19 14:16 Mode of Arrival: Ambulatory Information source: Patient Notes: Patient is a 34-year-old female coming in today for recheck of an abscess which was incised and drained yesterday. She has a large abscess with cellulitis to the left upper arm. She had some IV Ancef as well as some Bactrim DS by mouth. She returns today less than 24 hours since treatment feeling better. She notes the pain is not as severe. She notes the redness is not as intense. She caity afebrile. Tolerating the oral Keflex and Bactrim without any problems. TRAVEL OUTSIDE OF THE [place] IN LAST 30 DAYS: No - Related Data Allergies/Adverse Reactions: No Known Allergies Allergy (Verified 11/30/19 15:55) Past Medical History - Social History Smoking Status: Current Every Day Smoker Family History: None, Reviewed & Not Pertinent Renal/ Medical History: Denies: Hx Peritoneal Dialysis Psychiatric Medical History: Denies: Hx Depression Past Surgical History: Reports: Hx Section - Pt did not have BTL during section., Hx Hysterectomy - Immunizations Immunizations up to date: No Hx Diphtheria, Pertussis, Tetanus Vaccination: No Review of Systems - Review of Systems Notes: Constitutional: No fevers. No chills. EENT: No eye redness. No eye pain. No ear pain. No sore throat. Cardiovascular: No chest pain. No palpitations. Respiratory: No cough. No shortness of breath. No respiratory distress. Gastrointestinal: No abdominal pain. No nausea, vomiting, or diarrhea. Genitourinary: Atraumatic. No lesions. No pain. No discharge. Musculoskeletal: Atraumatic. No swelling. No deformities. Skin: + Left arm abscess and cellulitis Lymphatic: No swollen lymph nodes. Neurologic: No headache. No syncope. Psychiatric: No suicidal or homicidal ideation. Physical Exam - Vital signs Vitals: Temp Pulse Resp BP Pulse Ox 98.6 F 88 16 98/59 L 96 12/01/19 14:13 12/01/19 14:13 12/01/19 14:13 12/01/19 14:13 12/01/19 14:13 - Notes Notes: General: Well-developed, well-nourished. In no acute distress. Non-toxic appearing. Cardiac: Well-perfused. Regular rate and rhythm. No murmurs, rubs, or gallops. Pulmonary: No respiratory distress. No cyanosis. Bilateral lung sherman are clear to auscultation. Abdominal: Non-distended. Non-rigid. Bowels sounds are present in all four quadrants. No guarding or rebound. HEENT: Head is atraumatic. Conjunctivae not reddened. No tearing. PERRL. EOMI. Orbits atraumatic. No periorbital swelling or erythema. Oropharynx is without erythema, swelling, or exudates. Neck: Supple. No adenopathy. No meningismus. Dermatologic: Abscess left upper arm with evidence of recent incision and drainage. Moderate sanguinous drainage. Cellulitis appears less erythematous less tender. Cellulitis appears to be retreating from the pen markings placed yesterday. Chest: Atraumatic. No chest wall tenderness to palpation. Musculoskeletal: Moves all extremities well. No range of motion deficits. no muscular or joint tenderness. No paraspinal muscle tenderness. no midline spinal tenderness or step-off. Genitourinary: Examination deferred Neurologic: No gross neurologic deficits. Psychiatric: Normal mood. Course - Re-evaluation Re-evalutation: 12/01/19 14:54 Wound culture is growing gram-positive cocci in clusters suspect for Staph aureus or MRSA. In any event, she is on Keflex and Bactrim which should have good efficacy against either pathogen. We will recheck her abscess tomorrow. If she still heading in the right direction, will have her follow-up only as needed. - Vital Signs Vital signs: Temp Pulse Resp BP Pulse Ox 98.6 F 88 16 98/59 L 96 12/01/19 14:13 12/01/19 14:13 12/01/19 14:13 12/01/19 14:13 12/01/19 14:13 Discharge - Discharge Clinical Impression: Abscess of arm, left Condition: Good Disposition: HOME, SELF-CARE Instructions: Post Incision and Drainage, Trimethoprim-Sulfa ([facility]), Cephalexin ([facility]), Abscess ([facility]) Additional Instructions: Continue your current wound management. Do not hesitate to take the bandage off and wash out the area under the shower. Change dressings as often as need be. Continue your current antibiotic regimen. Return in 24 hours for recheck. Forms: Return to Work
== END 2019-12-01 15:01 | disposition home or self-care (01) ==
LOC: ER 14:07
DX: L02.414 Cutaneous abscess of left upper limb (principal); L03.114 Cellulitis of left upper limb; F17.200 Nicotine dependence, unspecified, uncomplicated; Z98.890 Other specified postprocedural states
CPT/HCPCS: 99281